=== PATIENT | male | born 1945 | race Caucasian/White ===

== ENCOUNTER 2018-06-06 19:28 | Inpatient (IN) | payer OTHER ==
--- NOTE | 2018-06-06 19:47 | PDOC ---
Rapid Medical Evaluation Medical Evaluation: Allergies Allergy/AdvReac Type Severity Reaction Status Date / Time No Known Drug Allergies Allergy Verified 12/01/14 11:23 I have performed a brief in-person evaluation of this patient. The patient presents with a chief complaint of: hx of Alzheimers, per daughter- in-law, patient feeling ill past 2 days; states just lying in bed, not eating or drinking much; denies vomiting, diarrhea, cough Pertinent physical exam findings: In NAD I have ordered the following: Labs, EKG The patient will proceed to the ED for further evaluation. 06/06/18 19:44
[2018-06-06 20:20] LABS: BASO % 1.2 % (0-2.0); EOS % 0.3 % (0-4.5); HEMOGLOBIN 15.7 GM/dL (11.7-16.9); LYMPH % 19.2 % (8-40); MCH 32.1 pg (25.7-33.7); MCHC 34.9 g/dl (32.0-35.9); MEAN CELL VOLUME 92.1 fl (80-96); MEAN PLT VOLUME 8.6 fl (7.5-11.1); NEUT % 74.3 % (42.8-82.8); PLATELET COUNT 168 K/MM3 (134-434); RBC 4.89 M/mm3 (4.00-5.60); RDW 12.4 % (11.9-15.9); WHITE BLOOD COUNT 9.2 K/mm3 (4.0-10.0)
[2018-06-06 20:53] LABS: ALBUMIN 3.9 g/dl (3.4-5.0); ALK PHOS 95 U/L (45-117); ANION GAP 6 MMOL/L (8-16); BILIRUBIN,TOTAL 0.6 mg/dL (0.2-1); BLOOD UREA NITROGEN 17 mg/dL (7-18); CALCIUM 8.4 mg/dL (8.5-10.1); CHLORIDE 104 mmol/L (98-107); CO2 26 mmol/L (21-32); CREATININE 0.8 mg/dL (0.55-1.3); GLUCOSE,RANDOM 117 mg/dL (74-106); POTASSIUM 4.4 mmol/L (3.5-5.1); SGOT/AST 14 U/L (15-37); SGPT/ALT 20 U/L (13-61); SODIUM 136 mmol/L (136-145); TOT PROT 7.5 g/dl (6.4-8.2)
[2018-06-06 21:07] LABS: EPI CELLS 0.9 /HPF (FEW); HYALINE CASTS 5 /hpf (NEGATIVE); URINE APPEARANCE CLEAR; URINE BACTERIA 0.324 /hpf (NEGATIVE); URINE BILIRUBIN NEGATIVE (<2.0 mg/dL); URINE COLOR YELLOW; URINE GLUCOSE (UA) NEGATIVE (NEGATIVE); URINE KETONE TRACE (NEGATIVE); URINE LEUK ESTERASE NEGATIVE (NEGATIVE); URINE NITRITE NEGATIVE (NEGATIVE); URINE PROTEIN NEGATIVE (NEGATIVE); URINE RBC 1 /hpf (0-3); URINE UROBILINOGEN 0.2 mg/dL (0.2-1.0); URINE WBC 1 /hpf (3-5)
--- NOTE | 2018-06-06 21:35 | PDOC ---
History of Present Illness - History of Present Illness Initial Comments: The pt is a 72M w/ a history of dementia who presents for evaluation of 2 days headache and vomiting. History from pt and daughter. He reports 2 days of waxing /waning, b/l, throbbing PLUNKETT. He also reports vomiting over the last two days but is unsure of number but denies remembering seeing blood in his vomit. 2 times today. Endorses chills. Denies vision changes, weakness, or change in sensation. Fell one month ago but denies any recent falls or head trauma. He has tried taking Tylenol and Ibuprofen with minimal relief. Denies fevers, abdominal pain, diarrhea, dysuria, hematuria 06/06/18 22:46 <Shay Ramirez - Last Filed: 06/07/18 01:25> <Ana Maria Pitts - Last Filed: 06/07/18 02:30> - General Chief Complaint: Weakness Stated Complaint: WEAKNESS Time Seen by Provider: 06/06/18 19:44 Past History - Past Medical History Anemia: No Asthma: No Cancer: No CVA: No COPD: No Diabetes: No HTN: No - Surgical History Abdominal Surgery: Yes (rt ing hernia) - Suicide/Smoking/Psychosocial Hx Smoking History: Never smoked Have you smoked in the past 12 months: No Information on smoking cessation initiated: No Hx Alcohol Use: No Drug/Substance Use Hx: No Substance Use Type: None Hx Substance Use Treatment: No <Shay Ramirez - Last Filed: 06/07/18 01:25> <Ana Maria Pitts - Last Filed: 06/07/18 02:30> - Past Medical History Allergies/Adverse Reactions: Allergies Allergy/AdvReac Type Severity Reaction Status Date / Time No Known Drug Allergies Allergy Verified 06/06/18 19:48 Home Medications: Ambulatory Orders Donepezil HCl 10 mg PO DAILY 06/06/18 Review of Systems - Review of Systems Able to Perform ROS?: Yes Comments:: GENERAL/CONSTITUTIONAL: No fever. No weakness HEAD, EYES, EARS, NOSE AND THROAT: No change in vision or hearing. No sore throat CARDIOVASCULAR: No chest pain or shortness of breath RESPIRATORY: Denies cough, hemoptysis GASTROINTESTINAL: No diarrhea or constipation GENITOURINARY: No dysuria, frequency, or change in urination MUSCULOSKELETAL: No joint or muscle swelling or pain. No neck or back pain SKIN: No rash NEUROLOGIC: No vertigo, loss of consciousness, or change in strength/sensation ENDOCRINE: No increased thirst. No abnormal weight change HEMATOLOGIC/LYMPHATIC: No anemia, easy bleeding, or history of blood clots ALLERGIC/IMMUNOLOGIC: No hives or skin allergy 06/06/18 22:52 <Shay Ramirez - Last Filed: 06/07/18 01:25> *Physical Exam - Vital Signs Last Vital Signs Temp Pulse Resp BP Pulse Ox 97.9 F 65 16 149/86 97 06/06/18 19:46 06/06/18 19:46 06/06/18 19:46 06/06/18 19:46 06/06/18 19:46 - Physical Exam Comments: GENERAL: Awake, alert, and oriented to person/place/time, in no acute distress HEAD: No signs of trauma, normocephalic, atraumatic EYES: PERRLA, EOMI, sclera anicteric, conjunctiva clear ENT: Hearing grossly normal, nares patent, oropharynx clear without exudates. Moist mucosa LUNGS: No distress, speaks full sentences, clear to auscultation bilaterally HEART: Regular rate and rhythm, normal S1 and S2, no murmurs appreciated, peripheral pulses normal and equal bilaterally ABDOMEN: Soft, mild RUQ TTP w/o rebound or guarding, normoactive bowel sounds. No guarding, no rebound. No masses EXTREMITIES: Normal inspection, Normal range of motion, no edema. No clubbing or cyanosis NEUROLOGICAL: Cranial nerves II through XII grossly intact. Normal speech, normal gait, no focal sensorimotor deficits SKIN: Warm, Dry 06/06/18 22:52 <Shay Ramirez - Last Filed: 06/07/18 01:25> - Vital Signs Last Vital Signs Temp Pulse Resp BP Pulse Ox 98.0 F 62 16 128/93 92 L 06/06/18 21:59 06/07/18 02:05 06/07/18 02:05 06/07/18 02:05 06/07/18 02:05 <Ana Maria Pitts - Last Filed: 06/07/18 02:30> Moderate Sedation - Procedure Monitoring Vital Signs: Procedure Monitoring Vital Signs Temperature 97.9 F 06/06/18 19:46 Pulse Rate 65 06/06/18 19:46 Respiratory Rate 16 06/06/18 19:46 Blood Pressure 149/86 06/06/18 19:46 O2 Sat by Pulse Oximetry (%) 97 06/06/18 19:46 <Shay Ramirez - Last Filed: 06/07/18 01:25> - Procedure Monitoring Vital Signs: Procedure Monitoring Vital Signs Temperature 98.0 F 06/06/18 21:59 Pulse Rate 62 06/07/18 02:05 Respiratory Rate 16 06/07/18 02:05 Blood Pressure 128/93 06/07/18 02:05 O2 Sat by Pulse Oximetry (%) 92 L 06/07/18 02:05 <Ana Maria Pitts - Last Filed: 06/07/18 02:30> ED Treatment Course - LABORATORY CBC & Chemistry Diagram: 06/06/18 20:08 06/06/18 20:08 - ADDITIONAL ORDERS Additional order review: Laboratory Results 06/06/18 06/06/18 20:48 20:08 Sodium 136 Potassium 4.4 Chloride 104 Carbon Dioxide 26 Anion Gap 6 L BUN 17 Creatinine 0.8 Creat Clearance w eGFR 94.50 Random Glucose 117 H Calcium 8.4 L Total Bilirubin 0.6 AST 14 L ALT 20 Alkaline Phosphatase 95 Troponin I < 0.02 Total Protein 7.5 Albumin 3.9 Urine Color Yellow Urine Appearance Clear Urine pH 5.0 Ur Specific Jackson 1.023 Urine Protein Negative Urine Glucose (UA) Negative Urine Ketones Trace H Urine Blood Trace Urine Nitrite Negative Urine Bilirubin Negative Urine Urobilinogen 0.2 Ur Leukocyte Esterase Negative Urine WBC (Auto) 1 Urine RBC (Auto) 1 Urine Casts (Auto) 5 U Epithel Cells (Auto) 0.9 Urine Bacteria (Auto) 0.324 06/06/18 20:08 RBC 4.89 MCV 92.1 MCHC 34.9 RDW 12.4 MPV 8.6 Neutrophils % 74.3 D Lymphocytes % 19.2 D Monocytes % 5.0 Eosinophils % 0.3 D Basophils % 1.2 <Shay Ramirez - Last Filed: 06/07/18 01:25> - LABORATORY CBC & Chemistry Diagram: 06/06/18 20:08 06/06/18 20:08 - ADDITIONAL ORDERS Additional order review: Laboratory Results 06/07/18 06/06/18 06/06/18 01:48 20:48 20:08 PT with INR 12.70 INR 1.08 PTT (Actin FS) 31.1 Sodium 136 Potassium 4.4 Chloride 104 Carbon Dioxide 26 Anion Gap 6 L BUN 17 Creatinine 0.8 Creat Clearance w eGFR 94.50 Random Glucose 117 H Calcium 8.4 L Total Bilirubin 0.6 AST 14 L ALT 20 Alkaline Phosphatase 95 Troponin I < 0.02 Total Protein 7.5 Albumin 3.9 Urine Color Yellow Urine Appearance Clear Urine pH 5.0 Ur Specific Jackson 1.023 Urine Protein Negative Urine Glucose (UA) Negative Urine Ketones Trace H Urine Blood Trace Urine Nitrite Negative Urine Bilirubin Negative Urine Urobilinogen 0.2 Ur Leukocyte Esterase Negative Urine WBC (Auto) 1 Urine RBC (Auto) 1 Urine Casts (Auto) 5 U Epithel Cells (Auto) 0.9 Urine Bacteria (Auto) 0.324 06/06/18 20:08 RBC 4.89 MCV 92.1 MCHC 34.9 RDW 12.4 MPV 8.6 Neutrophils % 74.3 D Lymphocytes % 19.2 D Monocytes % 5.0 Eosinophils % 0.3 D Basophils % 1.2 - Medications Given in the ED: ED Medications Discontinued Medications Generic Name Dose Route Start Last Admin Trade Name Freq PRN Reason Stop Dose Admin Diphenhydramine HCl 12.5 mg 06/06/18 23:26 06/06/18 23:40 Benadryl Injection - IVPUSH 06/06/18 23:27 12.5 mg ONCE ONE Administration Metoclopramide HCl 10 mg 06/06/18 23:26 06/06/18 23:40 Reglan Injection - IVPUSH 06/06/18 23:27 10 mg ONCE ONE Administration Sodium Chloride 1,000 ml 06/06/18 23:26 06/06/18 23:40 Normal Saline - IV 06/06/18 23:27 1,000 ml ONCE ONE Administration <Ana Maria Pitts - Last Filed: 06/07/18 02:30> Medical Decision Making - Medical Decision Making Trop I neg Lytes wnl No SAUL LFTs wnl UA w/o evidence of UTI Influenza neg 06/06/18 23:07 06/06/18 23:07 <Shay Ramirez - Last Filed: 06/07/18 01:25> *DC/Admit/Observation/Transfer <KaceyShay morelos - Last Filed: 06/07/18 01:25> - Discharge Dispostion Decision to Admit order: Yes <Ana Maria Pitts - Last Filed: 06/07/18 02:30> Diagnosis at time of Disposition: Subdural hematoma Vomiting Qualifiers: Vomiting type: unspecified Vomiting Intractability: non-intractable Nausea presence: with nausea Qualified Code(s): R11.2 - Nausea with vomiting, unspecified Headache Qualifiers: Headache type: unspecified Headache chronicity pattern: unspecified pattern Intractability: not intractable Qualified Code(s): R51 - Headache - Discharge Dispostion Condition at time of disposition: Critical - Referrals Referrals: Jessica Burnett MD [Primary Care Provider] - - Patient Instructions - Post Discharge Activity
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
[2018-06-06] MEDS ORDERED: METOCLOPRAMIDE HCL INJECTION 10 MG/2 ML VIAL IVPUSH ONE (23:26)
[2018-06-06] MEDS ORDERED: SODIUM CHLORIDE 0.9% 1000 ML INFUS.BAG IV ONE (23:26)
[2018-06-06] MEDS ORDERED: METOCLOPRAMIDE HCL INJECTION 10 MG/2 ML VIAL ONE (23:31)
[2018-06-07 02:19] LABS: INR 1.08 (0.83-1.09); PROTHROMBIN TIME (PATIENT) 12.7 SEC (9.7-13.0)
[2018-06-07 02:21] LABS: ACTIVATED PTT 31.1 SECONDS (25.2-36.5)
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
--- NOTE | 2018-06-07 03:43 | PN ---
Teaching Attending Note Name of Resident: Pranav Rivera ATTENDING PHYSICIAN STATEMENT I saw and evaluated the patient. I reviewed the resident's note and discussed the case with the resident. I agree with the resident's findings and plan as documented. SUBJECTIVE: Seen and examined; please refer to resident note for further historical information. Briefly, this is a 72 y/o preenting to the medicine service with b /l SDH. He presented complaining of a headache for 2 days and had several episodes of nbnb vomiting today. His sx were not relieved by OTC analgesics so he came to the ER for further eval. He is lucid, able to speak, and doesn't appear sleepy. No meningeal signs. Has had poor PO intake for the past [address] done in the ER shows b/l SDH with 1.7 maximum thickness on L and 1.5 maximum thickness on the R. Nsgy was called by ER and will see patient. He will be brought to the ICU for further treatment and monitoring. 10 sys ROS done and negative aside from HPI PMH, PSH, Family hx, Social hx reviewed Medication list reviewed; pending reconciliation OBJECTIVE: VS, labs, imaging reviewed NAD, AAO, resting comfortably in bed Questionable L-eye droop that corrects with wakefulness, NIHSS 0, 5/5 strength all extremities RRR s1/2 no mgr Lungs CTAB, w/ sym exp Skin is normal with no bruises, abbrasions Normal mood, appropriate behavior Labs unremarkable EKG reviewed Prelim CT report discussed ASSESSMENT AND PLAN: Patient is a 72 y/o male presenting with b/l subdural hematomas 1) Bilateral Subdural Hematoma -R (1.5) and L (1.7); nsgy to see. Defer further treatment and monitoring to their service. -Admit to ICU; hourly neuro checks with seizure precautions. HOB elevated. NPO and IVF without dextrose -Hold all AC; SCDs for DVT px, fall precautions. Any change in mentation will be communicated to specialist. 2) Dementia -Family unfortunately left prior to code status discussion, etc. 3) Headache -Likely 2/2 #1; PRN management. Avoid NSAIDs. 4) Hx L-LE DVT -Documented in 2014 notes. Call his pharmacy in the AM to verify home meds. PARRIS -MAHAD@75 -PRN replete -NPO -Bedrest
[2018-06-07] MEDS ORDERED: SODIUM CHLORIDE 1,000 ML IV SCH (04:00)
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
[2018-06-07] MEDS ORDERED: ACETAMINOPHEN 650 MG SUPP.RECT PR PRN (04:24)
[2018-06-07] MEDS: SODIUM CHLORIDE 1,000 ML IV SCH (04:30)
[2018-06-07] MEDS ORDERED: levETIRAcetam 500 MG/5 ML INJECTION VIAL IVPB ONE (04:34)
[2018-06-07] MEDS ORDERED: PT OWN MED DRAWER 7, Y5N ONE (07:05)
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
--- NOTE | 2018-06-07 07:50 | PN ---
Physical Exam: SUBJECTIVE: Patient seen and examined at bedside. No acute events overnight. Zoxmdojj-[id number] present at bedside. Pt is resting comfortably in bed, still has 6/10 headache. Denies f/c, sob, abd pain. OBJECTIVE: Vital Signs Period Temp Pulse Resp BP Sys/Amanda Pulse Ox Last 24 Hr 97.9 F-98.6 F 56-65 13-19 128-149/84-94 92-97 GENERAL: Filipino-speaking male. Awake and alert. NAD. Resting comfortably in bed. HEENT: AT/NC. EOMI. [place]. NECK: Trachea midline, full range of motion, supple. Good ROM. LUNGS: CTA B/L. No wheezes, rhonchi, rales heard. HEART: RRR. Normal S1, S2. No murmurs noted. ABDOMEN: SOft, NT/ND. Normactive bowel sounds. No masses noted. EXTREMITIES: 2+ pulses, warm, well-perfused, no edema. NEUROLOGICAL: Facial muscles intact. No tongue deviation. B/l facial sensation intact. Hamcmw-nz-aeky normal. PSYCH: Normal mood, normal affect. SKIN: LLE venous stasis dermatitis CBCD WBC 9.2 K/mm3 (4.0-10.0) 06/06/18 20:08 RBC 4.89 M/mm3 (4.00-5.60) 06/06/18 20:08 Hgb 15.7 GM/dL (11.7-16.9) 06/06/18 20:08 Hct 45.0 % (35.4-49) 06/06/18 20:08 MCV 92.1 fl (80-96) 06/06/18 20:08 MCHC 34.9 g/dl (32.0-35.9) 06/06/18 20:08 RDW 12.4 % (11.9-15.9) 06/06/18 20:08 Plt Count 168 K/MM3 (134-434) 06/06/18 20:08 MPV 8.6 fl (7.5-11.1) 06/06/18 20:08 CMP Sodium 136 mmol/L (136-145) 06/06/18 20:08 Potassium 4.4 mmol/L (3.5-5.1) 06/06/18 20:08 Chloride 104 mmol/L (98-107) 06/06/18 20:08 Carbon Dioxide 26 mmol/L (21-32) 06/06/18 20:08 Anion Gap 6 MMOL/L (8-16) L 06/06/18 20:08 BUN 17 mg/dL (7-18) 06/06/18 20:08 Creatinine 0.8 mg/dL (0.55-1.3) 06/06/18 20:08 Creat Clearance w eGFR 94.50 (>60) 06/06/18 20:08 Calcium 8.4 mg/dL (8.5-10.1) L 06/06/18 20:08 Total Bilirubin 0.6 mg/dL (0.2-1) 06/06/18 20:08 AST 14 U/L (15-37) L 06/06/18 20:08 ALT 20 U/L (13-61) 06/06/18 20:08 Alkaline Phosphatase 95 U/L (45-117) 06/06/18 20:08 Total Protein 7.5 g/dl (6.4-8.2) 06/06/18 20:08 Albumin 3.9 g/dl (3.4-5.0) 06/06/18 20:08 Active Medications Acetaminophen (Tylenol Suppository -) 650 mg IL Q4H PRN PRN Reason: FEVER Chlorhexidine Gluconate (Hibiclens For Decolonization -) 1 applic TP HS RAMBO Donepezil HCl (Aricept -) 10 mg PO HS RAMBO Sodium Chloride (Normal Saline -) 1,000 mls @ 75 mls/hr IV ASDIR RAMBO Last Admin: 06/07/18 04:30 Dose: 75 mls/hr Mupirocin (Bactroban Ointment (For Decolonization) -) 1 applic NS BID RAMBO Stop: 06/12/18 09:59 CONSULTS: Neurosurg- Dr. Oscar Kumar IMAGING: * Head CT: B/l isodense subacute subdural hematomas along the cerebral convexities w/ effacement of cortical sulci, sylvian fissures. Compressed lateral ventricles, third ventricle. Midline septum pellucidum. No evid of herniation. No CT evid of acute territorial ischemic changes. No evid of skull fracture. Past imaging: * Brain MRI (11/04/18): Unremarkable MRI fo brain. No evid of edema, acute ischemia changes, hemorrhage. Normal CSF spaces. No evid of supratentorial white matter microangiopathic ischemic changes, gliosis. No evid of dilatation of the temporal horns of lateral ventircles, loss of volume of medial temporal loss hippocampus. ASSESSMENT/PLAN: 72M w/ pmhx of dementia and hx of LLE DVT who presented with severe headache since this past Monday. Neuro #Bilateral subdural hematoma -Head CT noted above; remarkable for b/l subdural hematomas. Pt also has had a hx of mechanical fall about 1 month ago after which a head CT was done at [facility] and was neg per the [id number]. -Per neurosurg, recommend drainage of large b/l SDH given significant mass effect on head CT and severe new onset PLUNKETT -NPO, SCDs, Neurochecks, fall precautions -T&S ordered, 2 pRBCs ordered for procedure #Dementia Cont home med: Donepezil 10 HS Heme #Hx of DVT -bilateral LE duplex ordered Prophylaxis -SCDs FEN -NS @ 75 -replete lytes PRN -NPO, except meds dispo -cont to monitor in ICU -full code Visit type - Emergency Visit Emergency Visit: Yes ED Registration Date: 06/07/18 Care time: The patient presented to the Emergency Department on the above date and was hospitalized for further evaluation of their emergent condition. - New Patient This patient is new to me today: Yes Date on this admission: 06/07/18 - Critical Care Critical Care patient: Yes Total Critical Care Time (in minutes): 40 Critical Care Statement: The care of this patient involved high complexity decision making to prevent further life threatening deterioration of the patient 's condition and/or to evaluate & treat vital organ system(s) failure or risk of failure.
[2018-06-07 09:47] LABS: HEMATOCRIT 42.2 % (35.4-49); HEMOGLOBIN 14.8 GM/dL (11.7-16.9); MCH 32.3 pg (25.7-33.7); MEAN CELL VOLUME 92.2 fl (80-96); MEAN PLT VOLUME 8.7 fl (7.5-11.1); PLATELET COUNT 163 K/MM3 (134-434); RBC 4.58 M/mm3 (4.00-5.60); RDW 12.4 % (11.9-15.9); WHITE BLOOD COUNT 7.8 K/mm3 (4.0-10.0)
[2018-06-07] MEDS: MUPIROCIN 2% TOPICAL OINTMENT FOR DECOLONIZATION NS SCH ×2 (09:52→21:41)
[2018-06-07 09:58] LABS: INR 1.08 (0.83-1.09); PROTHROMBIN TIME (PATIENT) 12.7 SEC (9.7-13.0)
[2018-06-07 10:54] LABS: ERYTHROCYTE SEDIMENTATION RATE 7 mm/hr (0-20)
[2018-06-07] MEDS ORDERED: BACITRACIN 15 GM TUBE TOPICAL OINTMENT ONE (11:37)
[2018-06-07] MEDS ORDERED: THROMBIN (BOVINE) 5,000 UNIT VIAL TP ONE (11:38)
--- NOTE | 2018-06-07 12:03 | EKG ---
Test Reason : Blood Pressure : / mmHG Vent. Rate : 060 BPM Atrial Rate : 060 BPM P-R Int : 192 ms QRS Dur : 094 ms QT Int : 420 ms P-R-T Axes : 042 043 029 degrees QTc Int : 420 ms NORMAL SINUS RHYTHM NORMAL ECG WHEN COMPARED WITH ECG OF 03-AUG-2014 08:54, NO SIGNIFICANT CHANGE WAS FOUND Confirmed by HASEEB MARTINEZ MD ([id number]) on 06/07/2018 12:03:08 PM Referred By: Confirmed By:HASEEB MARTINEZ MD
[2018-06-07 12:29] LABS: ALBUMIN 3.6 g/dl (3.4-5.0); CO2 24 mmol/L (21-32)
[2018-06-07] MEDS ORDERED: LIDOCAINE HCL/PF 2% SDV 5ML VIAL ONE (12:30)
[2018-06-07] MEDS ORDERED: PROPOFOL 20 ML ONE ×2 (12:32)
[2018-06-07] MEDS ORDERED: fentaNYL CITRATE 250 MCG/5 ML VIAL ONE (12:32)
[2018-06-07] MEDS ORDERED: ROCURONIUM BROMIDE 50 MG/5 ML VIAL ONE ×2 (12:32→13:42)
[2018-06-07] MEDS ORDERED: ceFAZolin SODIUM 1 GM VIAL IVPB ONE (12:46)
[2018-06-07] MEDS ORDERED: BENZOIN TINCTURE SWABSTICK TP ONE (12:48)
--- NOTE | 2018-06-07 12:58 | PN ---
Teaching Attending Note Name of Resident: Sylvia Izquierdo ATTENDING PHYSICIAN STATEMENT I saw and evaluated the patient. I reviewed the resident's note and discussed the case with the resident. I agree with the resident's findings and plan as documented. SUBJECTIVE: Pt seen and examined in the ICU. c/o headache without nausea. Some visual changes. No focal numbness or weakness. MRI confirming large bilateral subdural hematomas. OBJECTIVE: Vital Signs Period Temp Pulse Resp BP Sys/Amanda Pulse Ox Last 24 Hr 97.9 F-98.6 F 56-72 13- 128-155/84-94 92-97 Intake & Output 06/04/18 06/05/18 06/06/18 06/07/18 23:59 23:59 23:59 23:59 Intake Total 150 Balance 150 Weight 90.718 kg 87.997 kg Gen: NAD at rest Heart: RRR Lung: decreased breath sounds at the bases Abd: soft, nontender Ext: no edema CBC, BMP 06/07/18 08:42 06/07/18 08:42 Active Medications Acetaminophen (Tylenol Suppository -) 650 mg HI Q4H PRN PRN Reason: FEVER Chlorhexidine Gluconate (Hibiclens For Decolonization -) 1 applic TP HS RAMBO Donepezil HCl (Aricept -) 10 mg PO HS RAMBO Sodium Chloride (Normal Saline -) 1,000 mls @ 75 mls/hr IV ASDIR RAMBO Last Admin: 06/07/18 04:30 Dose: 75 mls/hr Mupirocin (Bactroban Ointment (For Decolonization) -) 1 applic NS BID RAMBO Stop: 06/12/18 09:59 Last Admin: 06/07/18 09:52 Dose: 1 applic ASSESSMENT AND PLAN: s/p Fall Bilateral Subacute Hematomas with mass effect h/o DVT Dementia - neurosurgery f/u - for OR - NPO - IVF - pain control - neuro checks - mechanical DVT prophylaxis - continue ICU monitoring
[2018-06-07] MEDS ORDERED: LIDOCAINE 1%/EPI 1:100000 (20 ML MULTI DOSE VIAL) IJ ONE ×2 (13:03)
[2018-06-07 13:17] LABS: ALK PHOS 80 U/L (45-117); ANION GAP 7 MMOL/L (8-16); BILIRUBIN,TOTAL 0.9 mg/dL (0.2-1); BLOOD UREA NITROGEN 14 mg/dL (7-18); CALCIUM 8.3 mg/dL (8.5-10.1); CHLORIDE 108 mmol/L (98-107); CREATININE 0.7 mg/dL (0.55-1.3); GLUCOSE,RANDOM 105 mg/dL (74-106); MAGNESIUM 2.4 mg/dL (1.8-2.4); POTASSIUM 3.8 mmol/L (3.5-5.1); SGOT/AST 11 U/L (15-37); SGPT/ALT 19 U/L (13-61); SODIUM 139 mmol/L (136-145); TOT PROT 6.8 g/dl (6.4-8.2)
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
[2018-06-07] MEDS ORDERED: ePHEDrine SULFATE 50 MG/1 ML AMPULE ONE ×2 (13:41)
[2018-06-07] MEDS ORDERED: BACITRACIN 50,000 UNITS VIAL TP ONE (13:42)
[2018-06-07] MEDS ORDERED: NEOSTIGMINE METHYLSULFATE 0.5 MG/1 ML - 10 ML MDV ONE (14:35)
[2018-06-07] MEDS ORDERED: GLYCOPYRROLATE 0.2 MG/1 ML VIAL ONE ×2 (14:35)
[2018-06-07] MEDS ORDERED: ALBUMIN HUMAN 25% 100 ML VIAL IVPB SCH (14:45)
--- NOTE | 2018-06-07 14:48 | OP ---
Operative Note - Note: Operative Date: 06/07/18 Pre-Operative Diagnosis: Bilateral large SDH with mass effect Operation: R frontal craniotomy for evacuation of SDH; L frontal craniotomy for evacuation of SDH, microsurgical dissection, B subdural drain placement Findings: subacute B SDH; beginning R sided membrane Implants: cranial plates x8 and 1.5x5 mm screws x 16 Post-Operative Diagnosis: Same as Pre-op Surgeon: Oscar Kumar Head Rigger: Aj Villagomez Anesthesiologist/RUFFLING HEMMER AUTOMATIC: Cornell Cruz Anesthesia: General Specimens Removed: SDH for cytology, gram stain, culture Estimated Blood Loss (mls): 100 Operative Report Dictated: Yes
[2018-06-07 15:03] LABS: ANISOCYTOSIS 0; HELMET CELLS 0; HOWELL-JOLLY BODIES 0; MACROCYTOSIS 0; OVALOCYTE 0; PLATELET ESTIMATE DECREASED; ROULEAU 0; SICKELED CELLS 0; TARGET CELLS 0; TEAR DROP CELLS 0; TOXIC GRANULATION 0
--- NOTE | 2018-06-07 15:06 | PN ---
Progress Note (short form) - Note Progress Note: NEUROSURGERY POST-OP Back in ICU Still sleepy no complaint PE: AF, VSS HEENT- NC/AT; Neck- supple; Cor- RRR; Lungs- CTA B; Abd- beinign; Ext- no sign of DVT French speaking CN- PERRL, EOMF, face symmetric, tongue midlime; Motor- at least 4+/5 B UE/LE without drift; Sensation- intact; DTR- 1+; toes upgoing B Acute on chronic L > R lateral fronto-parietal convexity SDH with mass effect and signs of increased intracranial pressure s/p B craniotomy and drain placement Labs Kera Head CT in AM Drain instructions and HOB position d/w ICU team Findings and pt condition d/w family All questions answered
[2018-06-07] MEDS ORDERED: ONDANSETRON 4 MG/2 ML VIAL IVPUSH PRN (15:12)
[2018-06-07] MEDS ORDERED: PROMETHAZINE HCL 25 MG/1 ML VIAL IVPUSH PRN (15:12)
[2018-06-07] MEDS ORDERED: oxyCODONE HCL 5 MG TABLET PO PRN (15:12)
--- NOTE | 2018-06-07 15:16 | OP ---
Operative Note - Note: Operative Date: 06/07/18 Pre-Operative Diagnosis: Bilateral large SDH with mass effect Operation: Rt frontal craniotomy for evacuation of SDH; Lt frontal craniotomy for evacuation of SDH, microsurgical dissection, Bilateral subdural drain placement Post-Operative Diagnosis: Same as Pre-op Surgeon: Oscar Kumar [employer] Director: Aj Villagomez Anesthesiologist/RECORDING ARTIST: Cornell Cruz Anesthesia: General Estimated Blood Loss (mls): 100 Operative Report Dictated: Yes
[2018-06-07] MEDS: ALBUMIN HUMAN 25% 100 ML VIAL IVPB SCH ×2 (16:19→21:22)
[2018-06-07] MEDS: D5-NS + 20 MEQ KCL - 20 MEQ/1,000 ML INFUS.BAG IV SCH (16:20)
[2018-06-07] MEDS ORDERED: ALBUMIN HUMAN 25% 100 ML VIAL IVPB ONE (16:27)
[2018-06-07] MEDS: CEFAZOLIN 1 GM/D5W 1 GM/50 ML BAG IVPB SCH (18:46)
[2018-06-07] MEDS: LYTES/YERBA SANTA 240 ML BOTTLE MM SCH (18:47)
--- NOTE | 2018-06-07 19:03 | PN ---
Teaching Attending Note Name of Resident: Cheyenne Encinas ATTENDING PHYSICIAN STATEMENT I saw and evaluated the patient. I reviewed the resident's note and discussed the case with the resident. I agree with the resident's findings and plan as documented. SUBJECTIVE: patient complains of headache. No cp, sob, n/v OBJECTIVE: Gen: nad Pulm: ctab w/o w/r/r CV: rrr w/o m/r/g Abd: +bs, s/nt/nd Ext: no c/c/e ASSESSMENT AND PLAN: -case d/w Dr Kumar -planning for surgical intervention today Problem List - Problems (1) Subdural hematoma Code(s): S06.5X9A - TRAUM SUBDR HEM W LOC OF UNSP DURATION, INIT
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
--- NOTE | 2018-06-07 21:12 | CONSULT ---
Consult - text type - Consultation Consultation Note: The pt is a 72M w/ a history of dementia who presents for evaluation of 2 days headache and vomiting. He reports 2 days of waxing/waning, b/l, throbbing headache. Endorses chills. Denies vision changes, weakness, or change in sensation. Fell one month ago but denies any recent falls or head trauma. Denies fevers, abdominal pain, diarrhea, dysuria, hematuria - Past Medical History dementia - Surgical History Abdominal Surgery: Yes (rt ing hernia) - Suicide/Smoking/Psychosocial Hx Smoking History: Never smoked Allergies/Adverse Reactions: Allergies Allergy/AdvReac Type Severity Reaction Status Date / Time No Known Drug Allergies Allergy Verified 06/06/18 19:48 Home Medications: Ambulatory Orders Donepezil HCl 10 mg PO DAILY 06/06/18 - Vital Signs Last Vital Signs Temp Pulse Resp BP Pulse Ox 98.9 F 64 13 140/80 94 L 06/07/18 20:00 06/07/18 20:00 06/07/18 19:00 06/07/18 20:00 06/07/18 16:05 awake Cor: RSR, No murmurs, No gallops Lungs: Clear to P&A Abd: Soft, Normal bowel sounds, No organomegaly Ext:No significant edema Labs/meds reviewed a/p 72 y/o patient with dementia, fall 1 month ago, evaluated at [facility] now with b/l subdural hematomas, s/p neurosurgical drainage . nl cbc/pt/ptt remote h/o dvt and was on eliquis in 2013 but not on eliquis gor last several yrs. not on asa h/o varicose veins discussed with son
[2018-06-07] MEDS: levETIRAcetam 500 MG/5 ML INJECTION VIAL IVPB SCH (21:38)
[2018-06-07] MEDS: CHLORHEXIDINE GLUCONATE 4% CLEANSER FOR DECOLONIZATION TP SCH (21:39)
--- NOTE | 2018-06-07 21:41 | PN ---
Physical Exam: SUBJECTIVE: Patient seen and examined; + dementia; family at bedside; says at baseline; no complaints OBJECTIVE: Vital Signs Period Temp Pulse Resp BP Sys/Amanda Pulse Ox Last 24 Hr 98.0 F-100.7 F 56-82 10-19 126-155/60-94 92-95 GENERAL: The patient is awake, alert, demented NECK: Trachea midline, full range of motion, supple. LUNGS: Breath sounds equal, clear to auscultation bilaterally, no wheezes, no crackles, no accessory muscle use. Breast: no masses/lumps; nipple discharge HEART: Regular rate and rhythm, S1, S2 without murmur, rub or gallop. ABDOMEN: Soft, nontender, nondistended, normoactive bowel sounds, no guarding, no rebound, no hepatosplenomegaly, no masses. EXTREMITIES: 2+ pulses, warm, well-perfused, no edema. NEUROLOGICAL: Cranial nerves II through XII grossly intact. no focal deficits; strength 5/5; sensation intact; no droop PSYCH: Normal mood, normal affect. SKIN: Warm, dry, normal turgor, no rashes or lesions noted Laboratory Results - last 24 hr 06/06/18 06/07/18 06/07/18 21:55 01:48 01:48 WBC RBC Hgb Hct MCV MCH MCHC RDW Plt Count MPV Neutrophils % (Manual) Band Neutrophils % Lymphocytes % (Manual) Monocytes % (Manual) Eosinophils % (Manual) Basophils % (Manual) Myelocytes % (Man) Promyelocytes % (Man) Blast Cells % (Manual) Nucleated RBC % Metamyelocytes Hypochromia Toxic Granulation Dohle Bodies Platelet Estimate Polychromasia Poikilocytosis Basophilic Stippling Anisocytosis Microcytosis Macrocytosis Spherocytes Sickle Cells Target Cells Tear Drop Cells Ovalocytes Stomatocytes Helmet Cells [place] Bodies [place] Rings Kristen Cells Acanthocytes (Spur) Rouleaux Fragmented RBCs Schistocytes ESR PT with INR 12.70 INR 1.08 PTT (Actin FS) 31.1 Sodium Potassium Chloride Carbon Dioxide Anion Gap BUN Creatinine Creat Clearance w eGFR Random Glucose Calcium Phosphorus Magnesium Total Bilirubin AST ALT Alkaline Phosphatase Creatine Kinase Troponin I C-Reactive Protein B-Natriuretic Peptide Total Protein Albumin Vitamin B12 TSH Influenza A (Rapid) Negative Influenza B (Rapid) Negative Blood Type O POSITIVE Antibody Screen Negative Crossmatch See Detail 06/07/18 06/07/18 06/07/18 08:42 08:42 08:42 WBC 7.8 RBC 4.58 Hgb 14.8 Hct 42.2 MCV 92.2 MCH 32.3 MCHC 35.0 RDW 12.4 Plt Count 163 MPV 8.7 Neutrophils % (Manual) 60.6 Band Neutrophils % 0.0 Lymphocytes % (Manual) 30.3 Monocytes % (Manual) 3 L Eosinophils % (Manual) 1.0 Basophils % (Manual) 1.0 Myelocytes % (Man) 0 Promyelocytes % (Man) 0 Blast Cells % (Manual) 0 Nucleated RBC % 1 H Metamyelocytes 0 Hypochromia 0 Toxic Granulation 0 Dohle Bodies 0 Platelet Estimate Decreased Polychromasia 0 Poikilocytosis 0 Basophilic Stippling 0 Anisocytosis 0 Microcytosis 0 Macrocytosis 0 Spherocytes 0 Sickle Cells 0 Target Cells 0 Tear Drop Cells 0 Ovalocytes 0 Stomatocytes 0 Helmet Cells 0 [place] Bodies 0 [place] Rings 0 [place] Cells 0 Acanthocytes (Spur) 0 Rouleaux 0 Fragmented RBCs 0 Schistocytes 0 ESR 7 PT with INR 12.70 INR 1.08 PTT (Actin FS) Sodium 139 Potassium 3.8 Chloride 108 H Carbon Dioxide 24 Anion Gap 7 L BUN 14 Creatinine 0.7 Creat Clearance w eGFR 110.24 Random Glucose 105 Calcium 8.3 L Phosphorus 3.0 Magnesium 2.4 Total Bilirubin 0.9 AST 11 L ALT 19 Alkaline Phosphatase 80 Creatine Kinase 62 Troponin I < 0.02 C-Reactive Protein < 0.3 B-Natriuretic Peptide Total Protein 6.8 Albumin 3.6 Vitamin B12 1981 H TSH 1.57 Influenza A (Rapid) Influenza B (Rapid) Blood Type Antibody Screen Crossmatch 06/07/18 06/07/18 06/07/18 08:42 08:42 09:25 WBC RBC Hgb Hct MCV MCH MCHC RDW Plt Count MPV Neutrophils % (Manual) Band Neutrophils % Lymphocytes % (Manual) Monocytes % (Manual) Eosinophils % (Manual) Basophils % (Manual) Myelocytes % (Man) Promyelocytes % (Man) Blast Cells % (Manual) Nucleated RBC % Metamyelocytes Hypochromia Toxic Granulation Dohle Bodies Platelet Estimate Polychromasia Poikilocytosis Basophilic Stippling Anisocytosis Microcytosis Macrocytosis Spherocytes Sickle Cells Target Cells Tear Drop Cells Ovalocytes Stomatocytes Helmet Cells [place] Bodies [place] Rings [place] Cells Acanthocytes (Spur) Rouleaux Fragmented RBCs Schistocytes ESR PT with INR INR PTT (Actin FS) 32.6 Sodium Potassium Chloride Carbon Dioxide Anion Gap BUN Creatinine Creat Clearance w eGFR Random Glucose Calcium Phosphorus Magnesium Total Bilirubin AST ALT Alkaline Phosphatase Creatine Kinase Troponin I C-Reactive Protein B-Natriuretic Peptide 128.8 H Total Protein Albumin Vitamin B12 TSH Influenza A (Rapid) Influenza B (Rapid) Blood Type O POSITIVE Antibody Screen Crossmatch Active Medications Generic Name Dose Route Start Last Admin Trade Name Freq PRN Reason Stop Dose Admin Acetaminophen 650 mg 06/07/18 04:24 Tylenol Suppository - CT Q4H PRN FEVER Acetaminophen/Codeine Phosphate 1 tab 06/07/18 14:36 Tylenol # 3 - PO Q4H PRN PAIN LEVEL 4 - 6 Albumin Human 25 gm 06/07/18 16:15 06/07/18 21:22 Albumin Human 25% - IVPB 25 gm Q6H-IV RAMBO Administration Chlorhexidine Gluconate 1 applic 06/07/18 22:00 Hibiclens For Decolonization - TP HS RAMBO Docusate Sodium 100 mg 06/07/18 22:00 Colace - PO TID RAMBO Donepezil HCl 10 mg 06/07/18 22:00 Aricept - PO HS RAMBO Fentanyl 50 mcg 06/07/18 15:12 Sublimaze Injection - IVPUSH 06/08/18 03:00 Q5M PRN PAIN-PACU ORDER X 4 DOSES ONLY Sodium Chloride 1,000 mls @ 75 mls/hr 06/07/18 04:30 06/07/18 04:30 Normal Saline - IV 75 mls/hr ASDIR RAMBO Administration Cefazolin Sodium 1 gm in 50 mls @ 100 mls/hr 06/07/18 18:00 06/07/18 18:46 Ancef 1 Gm Premixed Ivpb - IVPB 06/08/18 17:59 100 mls/hr Q8H-IV RAMBO Administration Dextrose/Sodium Chloride 20 meq in 1,000 mls @ 80 mls/hr 06/07/18 14:45 06/07 16:20 Dextrose 5%-Normal Saline+20 Meq Kcl - IV 80 mls/hr ASDIR RAMBO Administration Levetiracetam 500 mg 06/07/18 22:00 Keppra Injection - IVPB BID RAMBO Mupirocin 1 applic 06/07/18 10:00 06/07/18 09:52 Bactroban Ointment (For Decolonization) - NS 06/12/18 09:59 1 applic BID RAMBO Administration Ondansetron HCl 4 mg 06/07/18 14:36 Zofran Injection IVPUSH Q6H PRN NAUSEA Ondansetron HCl 4 mg 06/07/18 15:12 Zofran Injection IVPUSH Q6H PRN NAUSEA AND/OR VOMITING Oxycodone HCl 10 mg 06/07/18 15:12 Roxicodone - PO 06/08/18 15:11 Q4H PRN PAIN LEVEL 6-10 Pantoprazole Sodium 40 mg 06/08/18 10:00 Protonix Iv IVPUSH DAILY RAMBO Promethazine HCl 12.5 mg 06/07/18 15:12 Phenergan Injection - IVPUSH Q6H PRN NAUSEA-FOR RESCUE AFTER 15 MIN Saliva Substitute 1 applic 06/07/18 18:30 06/07/18 18:47 Mouthkote Solution - MM 1 applic DAILY RAMBO Administration ASSESSMENT/PLAN: This is a 72 year old male with dementia; who presents with headache and found to have a large 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 - New Patient This patient is new to me today: Yes Date on this admission: 06/07/18 - Critical Care Critical Care patient: Yes Total Critical Care Time (in minutes): 40 Critical Care Statement: The care of this patient involved high complexity decision making to prevent further life threatening deterioration of the patient 's condition and/or to evaluate & treat vital organ system(s) failure or risk of failure.
[2018-06-07] MEDS: DONEPEZIL HCL 10 MG TABLET (FP) PO SCH (22:21)
[2018-06-07] MEDS: DOCUSATE SODIUM 100 MG CAPSULE (FP) PO SCH (22:38)
[2018-06-08] MEDS: CEFAZOLIN 1 GM/D5W 1 GM/50 ML BAG IVPB SCH ×2 (02:09→10:20)
[2018-06-08] MEDS: ALBUMIN HUMAN 25% 100 ML VIAL IVPB SCH ×4 (03:00→22:55)
[2018-06-08] MEDS: SODIUM CHLORIDE 1,000 ML IV SCH (05:20)
[2018-06-08 06:23] LABS: HEMATOCRIT 35.3 % (35.4-49); HEMOGLOBIN 12.3 GM/dL (11.7-16.9); MCH 31.8 pg (25.7-33.7); MCHC 34.8 g/dl (32.0-35.9); MEAN CELL VOLUME 91.4 fl (80-96); MEAN PLT VOLUME 8.7 fl (7.5-11.1); PLATELET COUNT 140 K/MM3 (134-434); RBC 3.87 M/mm3 (4.00-5.60); RDW 12.5 % (11.9-15.9); WHITE BLOOD COUNT 9.7 K/mm3 (4.0-10.0)
[2018-06-08] MEDS: DOCUSATE SODIUM 100 MG CAPSULE (FP) PO SCH ×3 (06:23→21:56)
[2018-06-08] MEDS: D5-NS + 20 MEQ KCL - 20 MEQ/1,000 ML INFUS.BAG IV SCH ×3 (06:24→22:13)
[2018-06-08 07:13] LABS: ANION GAP 7 MMOL/L (8-16); BLOOD UREA NITROGEN 15 mg/dL (7-18); CALCIUM 8.1 mg/dL (8.5-10.1); CHLORIDE 107 mmol/L (98-107); CO2 26 mmol/L (21-32); CREATININE 0.7 mg/dL (0.55-1.3); GLUCOSE,RANDOM 112 mg/dL (74-106); MAGNESIUM 2.2 mg/dL (1.8-2.4); POTASSIUM 3.6 mmol/L (3.5-5.1); SODIUM 139 mmol/L (136-145)
--- NOTE | 2018-06-08 08:24 | PN ---
Progress Note (short form) - Note Progress Note: NEUROSURGERY POD #1 no new complaint H/A better, no N/V PE: Tmax 100.7, now 99.3, AF, VSS Drain yesterday L/R 45; today L/R HEENT- NC/AT; Neck- supple; Cor- RRR; Lungs- CTA B; Abd- benign; Ext- no sign of DVT Dominican speaking CN- PERRL, EOMF, face symmetric, tongue midline; Motor- at least 4+/5 B UE/LE without drift; Sensation- intact; DTR- 1+; toes upgoing B Labs reviewed Acute on chronic L > R lateral fronto-parietal convexity SDH s/p B craniotomy and drain placement Keppra Bedrest with HOB flat x at least 30 hours more while drain in place Complete albumin infusion for [address] today, if improved can start diet Drain instructions and HOB position d/w ICU team Will likely d/c drain tomorrow if decreasing output and CT improved Incentive spirometry Family at bedside All questions answered
--- NOTE | 2018-06-08 08:35 | PN ---
Physical Exam: SUBJECTIVE: Patient seen and examined. Son at bedside and translating. No acute events overnight. Pt only complains of dry mouth otherwise no other complaints. OBJECTIVE: Vital Signs Period Temp Pulse Resp BP Sys/Amanda Pulse Ox Last 24 Hr 98.4 F-100.7 F 55-82 10-19 113-154/60-92 94-98 GENERAL: Pashto-speaking male. Awake and alert. NAD. Resting comfortably in bed. HEENT: Head wrapped in surgical dressing. b/l bags in place draining red fluid. EOMI. GENOVEVA. NECK: Trachea midline, full range of motion, supple. Good ROM. LUNGS: CTA B/L. No wheezes, rhonchi, rales heard. HEART: RRR. Normal S1, S2. No murmurs noted. ABDOMEN: Soft, NT/ND. Normactive bowel sounds. No masses noted. EXTREMITIES: 2+ pulses, warm, well-perfused, no edema. NEUROLOGICAL: Facial muscles intact. No tongue deviation. B/l facial sensation intact. No focal neurological deficits. Follows commands. PSYCH: Normal mood, normal affect. SKIN: LLE venous stasis dermatitis CBCD WBC 9.7 K/mm3 (4.0-10.0) 06/08/18 05:30 RBC 3.87 M/mm3 (4.00-5.60) L 06/08/18 05:30 Hgb 12.3 GM/dL (11.7-16.9) 06/08/18 05:30 Hct 35.3 % (35.4-49) L D 06/08/18 05:30 MCV 91.4 fl (80-96) 06/08/18 05:30 MCHC 34.8 g/dl (32.0-35.9) 06/08/18 05:30 RDW 12.5 % (11.9-15.9) 06/08/18 05:30 Plt Count 140 K/MM3 (134-434) 06/08/18 05:30 MPV 8.7 fl (7.5-11.1) 06/08/18 05:30 CMP Sodium 139 mmol/L (136-145) 06/08/18 05:30 Potassium 3.6 mmol/L (3.5-5.1) 06/08/18 05:30 Chloride 107 mmol/L (98-107) 06/08/18 05:30 Carbon Dioxide 26 mmol/L (21-32) 06/08/18 05:30 Anion Gap 7 MMOL/L (8-16) L 06/08/18 05:30 BUN 15 mg/dL (7-18) 06/08/18 05:30 Creatinine 0.7 mg/dL (0.55-1.3) 06/08/18 05:30 Creat Clearance w eGFR 110.24 (>60) 06/08/18 05:30 Calcium 8.1 mg/dL (8.5-10.1) L 06/08/18 05:30 Total Bilirubin 0.9 mg/dL (0.2-1) 06/07/18 08:42 AST 11 U/L (15-37) L 06/07/18 08:42 ALT 19 U/L (13-61) 06/07/18 08:42 Alkaline Phosphatase 80 U/L (45-117) 06/07/18 08:42 Total Protein 6.8 g/dl (6.4-8.2) 06/07/18 08:42 Albumin 3.6 g/dl (3.4-5.0) 06/07/18 08:42 Active Medications Acetaminophen (Tylenol Suppository -) 650 mg [place] Q4H PRN PRN Reason: FEVER Acetaminophen/Codeine Phosphate (Tylenol # 3 -) 1 tab PO Q4H PRN PRN Reason: PAIN LEVEL 4 - 6 Albumin Human (Albumin Human 25% -) 25 gm IVPB Q6H-IV RAMBO Last Admin: 06/08/18 03:00 Dose: 25 gm Chlorhexidine Gluconate (Hibiclens For Decolonization -) 1 applic TP HS [facility] Last Admin: 06/07/18 21:39 Dose: 1 applic Docusate Sodium (Colace -) 100 mg PO TID RAMBO Last Admin: 06/08/18 06:23 Dose: Not Given Donepezil HCl (Aricept -) 10 mg PO HS [facility] Last Admin: 06/07/18 22:21 Dose: Not Given Sodium Chloride (Normal Saline -) 1,000 mls @ 75 mls/hr IV ASDIR RAMBO Last Admin: 06/08/18 05:20 Dose: Not Given Cefazolin Sodium (Ancef 1 Gm Premixed Ivpb -) 1 gm in 50 mls @ 100 mls/hr IVPB Q8H-IV RAMBO Stop: 06/08/18 17:59 Last Admin: 06/08/18 02:09 Dose: 100 mls/hr Dextrose/Sodium Chloride (Dextrose 5%-Normal Saline+20 Meq Kcl -) 20 meq in 1, 000 mls @ 80 mls/hr IV ASDIR [facility] Last Admin: 06/08/18 06:24 Dose: 80 mls/hr Levetiracetam (Keppra Injection -) 500 mg IVPB BID [facility] Last Admin: 06/07/18 21:38 Dose: 500 mg Mupirocin (Bactroban Ointment (For Decolonization) -) 1 applic NS BID [facility] Stop: 06/12/18 09:59 Last Admin: 06/07/18 21:41 Dose: 1 applic Ondansetron HCl (Zofran Injection) 4 mg IVPUSH Q6H PRN PRN Reason: NAUSEA Ondansetron HCl (Zofran Injection) 4 mg IVPUSH Q6H PRN PRN Reason: NAUSEA AND/OR VOMITING Oxycodone HCl (Roxicodone -) 10 mg PO Q4H PRN PRN Reason: PAIN LEVEL 6-10 Stop: 06/08/18 15:11 Pantoprazole Sodium (Protonix Iv) 40 mg IVPUSH DAILY [facility] Promethazine HCl (Phenergan Injection -) 12.5 mg IVPUSH Q6H PRN PRN Reason: NAUSEA-FOR RESCUE AFTER 15 MIN Saliva Substitute (Mouthkote Solution -) 1 applic MM DAILY [facility] Last Admin: 06/07/18 18:47 Dose: 1 applic CONSULTS: Neurosurg- Dr. Oscar Kumar Heme- Dr. Box IMAGING: * Head CT (06/07/18): B/l isodense subacute subdural hematomas along the cerebral convexities w/ effacement of cortical sulci, sylvian fissures. Compressed lateral ventricles, third ventricle. Midline septum pellucidum. No evid of herniation. No CT evid of acute territorial ischemic changes. No evid of skull fracture. * LE duplex: No DVT identified involving either leg. Chronic appearing thrombus noted within L greater saphenous vein at level of knee. * Head CT (06/08/18): S/p evacuation of subdural hematomas. S/p bifrontal craniotomy, hyperdense blood or surgical material along the inner table of the calvarium at postsurgical site. Small extra-axial fluid collection of CSF attenuation (hygromas) L > R. Pneumocephalus w/ air-fluid level along L frontal convexity. Midline septum pellucidum. Mildly increased dilatation of lateral ventricles, third ventricle. Effaced cortical sulci. Past imaging: * Brain MRI (11/04/18): Unremarkable MRI fo brain. No evid of edema, acute ischemia changes, hemorrhage. Normal CSF spaces. No evid of supratentorial white matter microangiopathic ischemic changes, gliosis. No evid of dilatation of the temporal horns of lateral ventircles, loss of volume of medial temporal loss hippocampus. ASSESSMENT/PLAN: 72M w/ pmhx of dementia and hx of LLE DVT who presented with severe headache since this past Monday. Neuro #Bilateral subdural hematoma; s/p craniectomy w/ b/l drainage, POD #1 -Keep flat x30 hours while drain in place -Repeat head CT showed only post-op changes, can advance diet -Per neurosurg, likely d/c drain tomorrow if output decreased -Complete albumin infusion -Keppra #Dementia Cont home med: Donepezil 10 HS Heme #Hx of DVT -bilateral LE duplex ordered Prophylaxis -SCDs FEN -NS @ 75 -replete lytes PRN -May advance diet per neurosurg dispo -cont to monitor in ICU -full code Visit type - Emergency Visit Emergency Visit: Yes ED Registration Date: 06/07/18 Care time: The patient presented to the Emergency Department on the above date and was hospitalized for further evaluation of their emergent condition. - New Patient This patient is new to me today: No - Critical Care Critical Care patient: Yes Total Critical Care Time (in minutes): 36 Critical Care Statement: The care of this patient involved high complexity decision making to prevent further life threatening deterioration of the patient 's condition and/or to evaluate & treat vital organ system(s) failure or risk of failure.
[2018-06-08] MEDS: PANTOPRAZOLE SODIUM 40 MG VIAL IVPUSH SCH (09:28)
[2018-06-08] MEDS: levETIRAcetam 500 MG/5 ML INJECTION VIAL IVPB SCH ×2 (09:28→22:11)
[2018-06-08] MEDS: MUPIROCIN 2% TOPICAL OINTMENT FOR DECOLONIZATION NS SCH ×2 (09:29→22:14)
[2018-06-08] MEDS: LYTES/YERBA SANTA 240 ML BOTTLE MM SCH (09:29)
--- NOTE | 2018-06-08 10:57 | EKG ---
Test Reason : Blood Pressure : / mmHG Vent. Rate : 057 BPM Atrial Rate : 057 BPM P-R Int : 192 ms QRS Dur : 102 ms QT Int : 420 ms P-R-T Axes : 073 070 071 degrees QTc Int : 408 ms SINUS BRADYCARDIA NON-SPECIFIC INTRA-VENTRICULAR CONDUCTION DELAY WHEN COMPARED WITH ECG OF 06-JUN-2018 20:13, NO SIGNIFICANT CHANGE WAS FOUND Confirmed by DIANNE BRAGA, SHELLY ([id number]) on 06/08/2018 10:56:51 AM Referred By: Confirmed By:SHELLY DEAN MD
--- NOTE | 2018-06-08 12:28 | PN ---
Teaching Attending Note Name of Resident: Sylvia Izquierdo ATTENDING PHYSICIAN STATEMENT I saw and evaluated the patient. I reviewed the resident's note and discussed the case with the resident. I agree with the resident's findings and plan as documented. SUBJECTIVE: Patient seen and examined in the ICU. Son at the bedside for translation. PLUNKETT is improving. Exam is essentially non-focal. Seen by Neurosurgery this AM. OBJECTIVE: Intake & Output 06/05/18 06/06/18 06/07/18 06/08/18 23:59 23:59 23:59 23:59 Intake Total 3265 860 Output Total 2785 1535 Balance 480 -675 Weight 200 lb 194 lb 204 lb 2.369 oz Last Vital Signs Temp Pulse Resp BP Pulse Ox 98.4 F 59 L 14 114/60 98 06/08/18 09:00 06/08/18 09:00 06/08/18 09:00 06/08/18 09:00 06/08/18 09:00 Active Medications Acetaminophen (Tylenol Suppository -) 650 mg [place] Q4H PRN PRN Reason: FEVER Acetaminophen/Codeine Phosphate (Tylenol # 3 -) 1 tab PO Q4H PRN PRN Reason: PAIN LEVEL 4 - 6 Albumin Human (Albumin Human 25% -) 25 gm IVPB Q6H-IV [facility] Last Admin: 06/08/18 09:20 Dose: 25 gm Chlorhexidine Gluconate (Hibiclens For Decolonization -) 1 applic TP HS [facility] Last Admin: 06/07/18 21:39 Dose: 1 applic Docusate Sodium (Colace -) 100 mg PO TID [facility] Last Admin: 06/08/18 06:23 Dose: Not Given Donepezil HCl (Aricept -) 10 mg PO HS [facility] Last Admin: 06/07/18 22:21 Dose: Not Given Sodium Chloride (Normal Saline -) 1,000 mls @ 75 mls/hr IV ASDIR [facility] Last Admin: 06/08/18 05:20 Dose: Not Given Cefazolin Sodium (Ancef 1 Gm Premixed Ivpb -) 1 gm in 50 mls @ 100 mls/hr IVPB Q8H-IV [facility] Stop: 06/08/18 17:59 Last Admin: 06/08/18 10:20 Dose: 100 mls/hr Dextrose/Sodium Chloride (Dextrose 5%-Normal Saline+20 Meq Kcl -) 20 meq in 1, 000 mls @ 80 mls/hr IV ASDIR [facility] Last Admin: 06/08/18 06:24 Dose: 80 mls/hr Levetiracetam (Keppra Injection -) 500 mg IVPB BID [facility] Last Admin: 06/08/18 09:28 Dose: 500 mg Mupirocin (Bactroban Ointment (For Decolonization) -) 1 applic NS BID [facility] Stop: 06/12/18 09:59 Last Admin: 06/08/18 09:29 Dose: 1 applic Ondansetron HCl (Zofran Injection) 4 mg IVPUSH Q6H PRN PRN Reason: NAUSEA Ondansetron HCl (Zofran Injection) 4 mg IVPUSH Q6H PRN PRN Reason: NAUSEA AND/OR VOMITING Oxycodone HCl (Roxicodone -) 10 mg PO Q4H PRN PRN Reason: PAIN LEVEL 6-10 Stop: 06/08/18 15:11 Pantoprazole Sodium (Protonix Iv) 40 mg IVPUSH DAILY [facility] Last Admin: 06/08/18 09:28 Dose: 40 mg Promethazine HCl (Phenergan Injection -) 12.5 mg IVPUSH Q6H PRN PRN Reason: NAUSEA-FOR RESCUE AFTER 15 MIN Saliva Substitute (Mouthkote Solution -) 1 applic MM DAILY [facility] Last Admin: 06/08/18 09:29 Dose: 1 applic Gen: Awake and alert, NAD at rest Heart: RRR Lung: decreased breath sounds at the bases Abd: soft, nontender Ext: no edema Laboratory Results - last 24 hr 06/07/18 06/07/18 06/07/18 08:42 08:42 08:42 WBC RBC Hgb Hct MCV MCH MCHC RDW Plt Count MPV Neutrophils % (Manual) 60.6 Band Neutrophils % 0.0 Lymphocytes % (Manual) 30.3 Monocytes % (Manual) 3 L Eosinophils % (Manual) 1.0 Basophils % (Manual) 1.0 Myelocytes % (Man) 0 Promyelocytes % (Man) 0 Blast Cells % (Manual) 0 Nucleated RBC % 1 H Metamyelocytes 0 Hypochromia 0 Toxic Granulation 0 Dohle Bodies 0 Platelet Estimate Decreased Polychromasia 0 Poikilocytosis 0 Basophilic Stippling 0 Anisocytosis 0 Microcytosis 0 Macrocytosis 0 Spherocytes 0 Sickle Cells 0 Target Cells 0 Tear Drop Cells 0 Ovalocytes 0 Stomatocytes 0 Helmet Cells 0 [place] Bodies 0 [place] Rings 0 [place] Cells 0 Acanthocytes (Spur) 0 Rouleaux 0 Fragmented RBCs 0 Schistocytes 0 PTT (Actin FS) 32.6 Sodium 139 Potassium 3.8 Chloride 108 H Carbon Dioxide 24 Anion Gap 7 L BUN 14 Creatinine 0.7 Creat Clearance w eGFR 110.24 Random Glucose 105 Calcium 8.3 L Phosphorus 3.0 Magnesium 2.4 Total Bilirubin 0.9 AST 11 L ALT 19 Alkaline Phosphatase 80 Creatine Kinase 62 Troponin I < 0.02 C-Reactive Protein < 0.3 Total Protein 6.8 Albumin 3.6 Vitamin B12 1981 H TSH 1.57 06/08/18 06/08/18 05:30 05:30 WBC 9.7 RBC 3.87 L Hgb 12.3 Hct 35.3 L D MCV 91.4 MCH 31.8 MCHC 34.8 RDW 12.5 Plt Count 140 MPV 8.7 Neutrophils % (Manual) Band Neutrophils % Lymphocytes % (Manual) Monocytes % (Manual) Eosinophils % (Manual) Basophils % (Manual) Myelocytes % (Man) Promyelocytes % (Man) Blast Cells % (Manual) Nucleated RBC % Metamyelocytes Hypochromia Toxic Granulation Dohle Bodies Platelet Estimate Polychromasia Poikilocytosis Basophilic Stippling Anisocytosis Microcytosis Macrocytosis Spherocytes Sickle Cells Target Cells Tear Drop Cells Ovalocytes Stomatocytes Helmet Cells [place] Bodies [place] Rings [place] Cells Acanthocytes (Spur) Rouleaux Fragmented RBCs Schistocytes PTT (Actin FS) Sodium 139 Potassium 3.6 Chloride 107 Carbon Dioxide 26 Anion Gap 7 L BUN 15 Creatinine 0.7 Creat Clearance w eGFR 110.24 Random Glucose 112 H Calcium 8.1 L Phosphorus 4.0 Magnesium 2.2 Total Bilirubin AST ALT Alkaline Phosphatase Creatine Kinase Troponin I C-Reactive Protein Total Protein Albumin Vitamin B12 TSH ASSESSMENT AND PLAN: s/p Fall Bilateral Subacute Hematomas with mass effect h/o DVT Dementia - Repeat CT head - PO if CT head is stable/improved - IVF - pain control - mechanical DVT prophylaxis - Flat on bed for 30 hours per NS - continue ICU monitoring for close neuro checks Dr Torre Critical care time spent in reviewing chart, evaluating patient and formulating plan - 36 minutes.
--- NOTE | 2018-06-08 16:14 | PN ---
Progress Note (short form) - Note Progress Note: Post op day#1.S/P Craniotomy with evacuation of haematoma under GA uneventful.P56,BP119/67 and Spo2 97% on O2 2L NC.Patient stable.No any anesthesia related problem.Patient DC from the anesthesia care.
--- NOTE | 2018-06-08 16:26 | PATH ---
Cytology Non-Gynecological Report Patient Name: SYED CRONIN Med. Rec. #: [id number] /Age/Gender: 1945 (Age: 72) / M Account: [id number] Location: ICU [facility] Taken: 06/07/2018 Received: 06/07/2018 Reported: 06/08/2018 Physicians: Oscar Kumar M.D. Specimen(s) Received RIGHT SUBDURAL HEMATOMA Clinical History Subdural hematoma Final Diagnosis SUBDURAL HEMATOMA FOR CYTOLOGY: SATISFACTORY FOR EVALUATION. NEGATIVE FOR MALIGNANT CELLS. NUMEROUS RED BLOOD CELLS PRESENT CONSISTENT WITH SUBDURAL HEMATOMA. RARE MINUTE BONE FRAGMENTS NOTED. Electronically Signed Sully Price M.D. Gross Description Approximately 2cc of bloody fluid received fresh. One cytofunnel prepared and Pap stained. One cellblock prepared.
--- NOTE | 2018-06-08 18:16 | PN ---
Physical Exam: SUBJECTIVE: Patient seen and examined; neuro exam same as prior to sx; POD #1 ; OBJECTIVE: Vital Signs Period Temp Pulse Resp BP Sys/Amanda Pulse Ox Last 24 Hr 98.4 F-100.6 F 52-68 12-19 104-140/60-80 98-98 GENERAL: at baseline; with mild dementia; with bilateral drains scalp LUNGS: Breath sounds equal, clear to auscultation bilaterally, no wheezes, no crackles, no accessory muscle use. HEART: Regular rate and rhythm, S1, S2 without murmur, rub or gallop. ABDOMEN: Soft, nontender, nondistended, normoactive bowel sounds, no guarding, no rebound, no hepatosplenomegaly, no masses. EXTREMITIES: 2+ pulses, warm, well-perfused, no edema. NEUROLOGICAL: Cranial nerves II through XII grossly intact. ; strength intact; sensation intact Laboratory Results - last 24 hr 06/08/18 06/08/18 05:30 05:30 WBC 9.7 RBC 3.87 L Hgb 12.3 Hct 35.3 L D MCV 91.4 MCH 31.8 MCHC 34.8 RDW 12.5 Plt Count 140 MPV 8.7 Sodium 139 Potassium 3.6 Chloride 107 Carbon Dioxide 26 Anion Gap 7 L BUN 15 Creatinine 0.7 Creat Clearance w eGFR 110.24 Random Glucose 112 H Calcium 8.1 L Phosphorus 4.0 Magnesium 2.2 Active Medications Generic Name Dose Route Start Last Admin Trade Name Freq PRN Reason Stop Dose Admin Acetaminophen 650 mg 06/07/18 04:24 Tylenol Suppository - [place] Q4H PRN FEVER Acetaminophen/Codeine Phosphate 1 tab 06/07/18 14:36 Tylenol # 3 - PO Q4H PRN PAIN LEVEL 4 - 6 Albumin Human 25 gm 06/07/18 16:15 06/08/18 17:32 Albumin Human 25% - IVPB 25 gm Q6H-IV [facility] Administration Chlorhexidine Gluconate 1 applic 06/07/18 22:00 06/07/18 21:39 Hibiclens For Decolonization - TP 1 applic HS [facility] Administration Docusate Sodium 100 mg 06/07/18 22:00 06/08/18 14:33 Colace - PO Not Given TID RAMBO Donepezil HCl 10 mg 06/07/18 22:00 06/07/18 22:21 Aricept - PO Not Given HS RAMBO Sodium Chloride 1,000 mls @ 75 mls/hr 06/07/18 04:30 06/08/18 05:20 Normal Saline - IV Not Given ASDIR [facility] Dextrose/Sodium Chloride 20 meq in 1,000 mls @ 80 mls/hr 06/07/18 14:45 06/08 17:33 Dextrose 5%-Normal Saline+20 Meq Kcl - IV 80 mls/hr ASDIR [facility] Administration Levetiracetam 500 mg 06/07/18 22:00 06/08/18 09:28 Keppra Injection - IVPB 500 mg BID [facility] Administration Mupirocin 1 applic 06/07/18 10:00 06/08/18 09:29 Bactroban Ointment (For Decolonization) - NS 06/12/18 09:59 1 applic BID [facility] Administration Ondansetron HCl 4 mg 06/07/18 14:36 Zofran Injection IVPUSH Q6H PRN NAUSEA Ondansetron HCl 4 mg 06/07/18 15:12 Zofran Injection IVPUSH Q6H PRN NAUSEA AND/OR VOMITING Pantoprazole Sodium 40 mg 06/08/18 10:00 06/08/18 09:28 Protonix Iv IVPUSH 40 mg DAILY [facility] Administration Promethazine HCl 12.5 mg 06/07/18 15:12 Phenergan Injection - IVPUSH Q6H PRN NAUSEA-FOR RESCUE AFTER 15 MIN Saliva Substitute 1 applic 06/07/18 18:30 06/08/18 09:29 Mouthkote Solution - MM 1 applic DAILY [facility] Administration ASSESSMENT/PLAN: This is a 72 year old male with dementia; who presents with headache and found to have a 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 - New Patient This patient is new to me today: No - Critical Care Critical Care patient: Yes Total Critical Care Time (in minutes): 45 Critical Care Statement: The care of this patient involved high complexity decision making to prevent further life threatening deterioration of the patient 's condition and/or to evaluate & treat vital organ system(s) failure or risk of failure.
--- NOTE | 2018-06-08 18:20 | PN ---
Teaching Attending Note Name of Resident: Cheyenne Encinas ATTENDING PHYSICIAN STATEMENT I saw and evaluated the patient. I reviewed the resident's note and discussed the case with the resident. I agree with the resident's findings and plan as documented. SUBJECTIVE: Mr Carpio complains of some head pain but otherwise says he is doing well. No cp, sob, n/v OBJECTIVE: Last Vital Signs Temp Pulse Resp BP Pulse Ox 38.1 C H 56 L 16 125/76 98 06/08/18 14:00 06/08/18 16:00 06/08/18 16:00 06/08/18 16:00 06/08/18 09:00 Gen: nad Pulm: ctab w/o w/r/r CV: rrr w/o m/r/g Abd: +bs, s/nt/nd Ext: no c/c/e CBC, BMP 06/08/18 05:30 06/08/18 05:30 ASSESSMENT AND PLAN: -neurosurgery following -CT scan to be reviewed by Dr José betancourt for seizure prophylaxis -continue current management Problem List - Problems (1) Subdural hematoma Code(s): S06.5X9A - TRAUM SUBDR HEM W LOC OF UNSP DURATION, INIT
[2018-06-08] MEDS: ACETAMINOPHEN 1000 MG/100 ML VIAL (NON FORMULARY) IVPB PRN (20:00)
[2018-06-08] MEDS: DONEPEZIL HCL 10 MG TABLET (FP) PO SCH (21:18)
[2018-06-08] MEDS: CHLORHEXIDINE GLUCONATE 4% CLEANSER FOR DECOLONIZATION TP SCH (22:11)
[2018-06-08] MEDS: ONDANSETRON 4 MG/2 ML VIAL IVPUSH PRN (22:21)
[2018-06-09] MEDS: DOCUSATE SODIUM 100 MG CAPSULE (FP) PO SCH ×3 (05:01→21:06)
--- NOTE | 2018-06-09 08:40 | PN ---
Progress Note (short form) - Note Progress Note: PULM/CCM Pt seen & Examined in the ICU, CA+OX3, states feel well. Active Medications Acetaminophen/Codeine Phosphate (Tylenol # 3 -) 1 tab PO Q4H PRN PRN Reason: PAIN LEVEL 4 - 6 Docusate Sodium (Colace -) 100 mg PO TID COUNTS [facility] 234 BEDS AT [facility] Last Admin: 06/09/18 21:06 Dose: 100 mg Donepezil HCl (Aricept -) 10 mg PO HS COUNTS INCLUDE 234 BEDS AT THE [facility] Last Admin: 06/09/18 21:07 Dose: 10 mg Dextrose/Sodium Chloride (Dextrose 5%-Normal Saline+20 Meq Kcl -) 20 meq in 1, 000 mls @ 80 mls/hr IV ASDIR COUNTS INCLUDE 234 BEDS AT THE [facility] Last Admin: 06/09/18 17:19 Dose: 80 mls/hr Levetiracetam (Keppra Injection -) 500 mg IVPB BID COUNTS INCLUDE 234 BEDS AT THE [facility] Last Admin: 06/09/18 21:07 Dose: 500 mg Ondansetron HCl (Zofran Injection) 4 mg IVPUSH Q6H PRN PRN Reason: NAUSEA Last Admin: 06/08/18 22:21 Dose: 4 mg Ondansetron HCl (Zofran Injection) 4 mg IVPUSH Q6H PRN PRN Reason: NAUSEA AND/OR VOMITING Pantoprazole Sodium (Protonix Iv) 40 mg IVPUSH DAILY COUNTS INCLUDE 234 BEDS AT THE [facility] Last Admin: 06/09/18 09:07 Dose: 40 mg Promethazine HCl (Phenergan Injection -) 12.5 mg IVPUSH Q6H PRN PRN Reason: NAUSEA-FOR RESCUE AFTER 15 MIN Saliva Substitute (Mouthkote Solution -) 1 applic MM DAILY COUNTS INCLUDE 234 BEDS AT THE [facility] Last Admin: 06/09/18 09:07 Dose: 1 applic Vital Signs Period Temp Pulse Resp BP Sys/Amanda Pulse Ox Last 24 Hr 98 F-98.9 F 49-66 13-16 113-141/63-81 98-98 Intake & Output 06/07/18 06/08/18 06/09/18 06/10/18 23:59 23:59 23:59 23:59 Intake Total 3265 1990 2760 Output Total 1471 6005 1765 Balance 480 -405 995 Weight 87.997 kg 92.6 kg 92.533 kg Gen: Awake and alert, NAD at rest Heart: RRR Lung: decreased breath sounds at the bases Abd: soft, nontender Ext: no edema CBC, BMP 06/08/18 05:30 06/08/18 05:30 Microbiology 06/07/18 13:38 Brain Fluid Gram Stain - Final 06/07/18 13:38 Brain Fluid Body Fluid Culture - Preliminary NO AEROBIC GROWTH, 24 HRS 06/07/18 13:38 Brain Fluid Anaerobic Culture - Final NO ANAEROBES WERE ISOLATED 06/07/18 13:35 Brain Fluid Gram Stain - Final 06/07/18 13:35 Brain Fluid Body Fluid Culture - Preliminary NO AEROBIC GROWTH, 24 HRS 06/07/18 13:35 Brain Fluid Anaerobic Culture - Final NO ANAEROBES WERE ISOLATED 06/06/18 20:48 Urine - Urine Clean Catch Urine Culture - Final NO GROWTH OBTAINED [facility] 06/09: Status post bilateral frontal craniotomies in comparison to a CT exam of 06/07/2018. Status post evacuation of bilateral frontoparietal convexity subdural hematomas. Small to moderate size bilateral subdural hygromas are again visualized with partial effacement of the subjacent cerebral sulci. A small amount of acute blood is seen within the frontal subdural spaces bilaterally as well as a small amount of postsurgical air accumulation. No midline displacement is seen. ASSESSMENT AND PLAN: s/p Fall Bilateral Subacute Hematomas with mass effect h/o DVT Dementia - AEDs - IVFs - pain control - mechanical DVT prophylaxis - continue ICU monitoring for close neuro checks [facility] ICU PULM/CCM 0748
[2018-06-09] MEDS ORDERED: PT OWN MED DRAWER 7, Y5N ONE ×3 (08:56→16:50)
[2018-06-09] MEDS: ACETAMINOPHEN 1000 MG/100 ML VIAL (NON FORMULARY) IVPB PRN (09:01)
[2018-06-09] MEDS: levETIRAcetam 500 MG/5 ML INJECTION VIAL IVPB SCH ×2 (09:05→21:07)
[2018-06-09] MEDS: MUPIROCIN 2% TOPICAL OINTMENT FOR DECOLONIZATION NS SCH (09:05)
[2018-06-09] MEDS: ALBUMIN HUMAN 25% 100 ML VIAL IVPB SCH ×3 (09:06→17:27)
[2018-06-09] MEDS: LYTES/YERBA SANTA 240 ML BOTTLE MM SCH (09:07)
[2018-06-09] MEDS: PANTOPRAZOLE SODIUM 40 MG VIAL IVPUSH SCH (09:07)
--- NOTE | 2018-06-09 09:47 | PN ---
Progress Note (short form) - Note Progress Note: NEUROSURGERY POD #2 In ICU Some H/a yesterday H/A better, no N/V PE: Tmax 101.1, now 98,7, VSS Drain L/R 190(more CSF appearing)/20 HEENT- NC/AT; Neck- supple; Cor- RRR; Lungs- CTA B; Abd- benign; Ext- no sign of DVT Danish speaking CN- PERRL, EOMF, face symmetric, tongue midline; Motor- at least 4+/5 B UE/LE without drift; Sensation- intact; DTR- 1+; toes upgoing B Head CT- some residual fluids and pneumocephalus, unchanged from 06-08-18 scan, improved c/w pre-op Acute on chronic L > R lateral fronto-parietal convexity SDH s/p B craniotomy and drain placement Cont Keppra Bedrest with HOB flat x at least 30 hours more while drain in place Complete albumin infusion for [address] today, if improved can start diet Drain instructions and HOB position d/w ICU team d/c drain to avoid over drainage (drain out after cleaning with betadine) Incentive spirometry Family at bedside HOB up at 1300 D/C [place] when OOB All questions answered
--- NOTE | 2018-06-09 10:08 | PN ---
Progress Note, Physician Chief Complaint: Mr Carpio complains of pain from the surgery but otherwise without complaint. No cp, sob, n/v. - Current Medication List Current Medications: Active Medications Acetaminophen/Codeine Phosphate (Tylenol # 3 -) 1 tab PO Q4H PRN PRN Reason: PAIN LEVEL 4 - 6 Albumin Human (Albumin Human 25% -) 25 gm IVPB Q6H-IV [facility] Last Admin: 06/09/18 09:06 Dose: 25 gm Chlorhexidine Gluconate (Hibiclens For Decolonization -) 1 applic TP HS [facility] Last Admin: 06/08/18 22:11 Dose: 1 applic Docusate Sodium (Colace -) 100 mg PO TID [facility] Last Admin: 06/09/18 05:01 Dose: Not Given Donepezil HCl (Aricept -) 10 mg PO HS [facility] Last Admin: 06/08/18 21:18 Dose: Not Given Dextrose/Sodium Chloride (Dextrose 5%-Normal Saline+20 Meq Kcl -) 20 meq in 1, 000 mls @ 80 mls/hr IV ASDIR [facility] Last Admin: 06/08/18 22:13 Dose: 80 mls/hr Levetiracetam (Keppra Injection -) 500 mg IVPB BID [facility] Last Admin: 06/09/18 09:05 Dose: 500 mg Mupirocin (Bactroban Ointment (For Decolonization) -) 1 applic NS BID [facility] Stop: 06/12/18 09:59 Last Admin: 06/09/18 09:05 Dose: 1 applic Ondansetron HCl (Zofran Injection) 4 mg IVPUSH Q6H PRN PRN Reason: NAUSEA Last Admin: 06/08/18 22:21 Dose: 4 mg Ondansetron HCl (Zofran Injection) 4 mg IVPUSH Q6H PRN PRN Reason: NAUSEA AND/OR VOMITING Pantoprazole Sodium (Protonix Iv) 40 mg IVPUSH DAILY [facility] Last Admin: 06/09/18 09:07 Dose: 40 mg Promethazine HCl (Phenergan Injection -) 12.5 mg IVPUSH Q6H PRN PRN Reason: NAUSEA-FOR RESCUE AFTER 15 MIN Saliva Substitute (Mouthkote Solution -) 1 applic MM DAILY [facility] Last Admin: 06/09/18 09:07 Dose: 1 applic - Objective Vital Signs: Vital Signs Temperature 37.1 C 06/09/18 06:00 Pulse Rate 56 L 06/09/18 06:00 Respiratory Rate 14 06/09/18 06:00 Blood Pressure 121/64 06/09/18 06:00 O2 Sat by Pulse Oximetry (%) 98 06/08/18 23:11 Constitutional: Yes: Well Nourished, No Distress, Calm HENT: Yes: Other (head bandaged, drain in place) Cardiovascular: Yes: Regular Rate and Rhythm. No: Gallop, Murmur, Rub Respiratory: Yes: Regular, CTA Bilaterally. No: Rales, Rhonchi, Wheezes Gastrointestinal: Yes: Normal Bowel Sounds, Soft. No: Distention, Tenderness Extremities: Yes: WNL Edema: No Labs: CBC, BMP 06/08/18 05:30 06/08/18 05:30 INR, PTT INR 1.08 (0.83-1.09) 06/07/18 08:42 Problem List - Problems (1) Subdural hematoma Assessment/Plan: -neurosurgery following and note reviewed -head CT performed and no change per radiology -continue current management -continue [facility] Code(s): S06.5X9A - TRAUM SUBDR HEM W LOC OF UNSP DURATION, INIT
[2018-06-09 16:15] VITALS: BMI 27.6
--- NOTE | 2018-06-09 16:44 | PN ---
Progress Note (short form) - Note Progress Note: PAtient seen and examined awake , alert feels ok Last Vital Signs Temp Pulse Resp BP Pulse Ox 98.7 F 60 14 138/81 98 06/09/18 12:00 06/09/18 16:00 06/09/18 16:00 06/09/18 16:00 06/09/18 09:00 Cor: RSR, No murmurs, No gallops Lungs: Clear to P&A Abd: Soft, Normal bowel sounds, No organomegaly Ext:No significant edema Labs/Meds reviewed A/P 72 y/o patient with dementia, fall 1 month ago, evaluated at [facility] now with b/l subdural hematomas, s/p neurosurgical drainage . nl cbc/pt/ptt remote h/o dvt and was on eliquis in 2013 but not on eliquis for last several yrs. not on asa h/o varicose veins. Family repoorts 1 episode of VTE ? related to varicose vains back in [id number] discussed with son
[2018-06-09] MEDS: D5-NS + 20 MEQ KCL - 20 MEQ/1,000 ML INFUS.BAG IV SCH (17:19)
[2018-06-09] MEDS: DONEPEZIL HCL 10 MG TABLET (FP) PO SCH (21:07)
[2018-06-09] MEDS ORDERED: AMIODARONE HCL 150 MG/3 ML VIAL ONE (21:30)
[2018-06-10] MEDS: ACETAMINOPHEN WITH CODEINE 300MG/30MG TABLET PO PRN ×3 (00:42→09:57)
[2018-06-10] MEDS: D5-NS + 20 MEQ KCL - 20 MEQ/1,000 ML INFUS.BAG IV SCH ×2 (00:45→18:00)
[2018-06-10] MEDS: DOCUSATE SODIUM 100 MG CAPSULE (FP) PO SCH ×3 (05:35→21:20)
[2018-06-10 06:12] LABS: BASO % 0.5 % (0-2.0); EOS % 3.2 % (0-4.5); HEMATOCRIT 35.2 % (35.4-49); HEMOGLOBIN 12.3 GM/dL (11.7-16.9); LYMPH % 24.8 % (8-40); MCH 31.5 pg (25.7-33.7); MCHC 34.9 g/dl (32.0-35.9); MEAN CELL VOLUME 90.2 fl (80-96); MEAN PLT VOLUME 8.5 fl (7.5-11.1); MONO % 11.1 % (3.8-10.2); NEUT % 60.4 % (42.8-82.8); PLATELET COUNT 130 K/MM3 (134-434); RDW 12.2 % (11.9-15.9); WHITE BLOOD COUNT 8.9 K/mm3 (4.0-10.0)
[2018-06-10 06:42] LABS: ANION GAP 8 MMOL/L (8-16); BLOOD UREA NITROGEN 17 mg/dL (7-18); CALCIUM 8.4 mg/dL (8.5-10.1); CHLORIDE 106 mmol/L (98-107); CO2 25 mmol/L (21-32); CREATININE 0.6 mg/dL (0.55-1.3); GLUCOSE,RANDOM 110 mg/dL (74-106); MAGNESIUM 2.2 mg/dL (1.8-2.4); PHOSPHOROUS 3.4 mg/dL (2.5-4.9); POTASSIUM 3.7 mmol/L (3.5-5.1); SODIUM 139 mmol/L (136-145)
--- NOTE | 2018-06-10 08:37 | PN ---
Progress Note (short form) - Note Progress Note: NEUROSURGERY POD #3 In ICU Mild frontal H/A earlier PE: Tmax 99.9, VSS Brother at bedside HEENT- NC/AT; Neck- supple; Cor- RRR; Lungs- CTA B; Abd- benign; Ext- no sign of DVT Yoruba speaking CN- PERRL, EOMF, face symmetric, tongue midline; Motor- at least 4+/5 B UE/LE without drift; Sensation- intact; DTR- 1+; toes upgoing B Head CT- some residual fluids and pneumocephalus, unchanged from 3-- scan, improved c/w pre-op Acute on chronic L > R lateral fronto-parietal convexity SDH s/p B craniotomy and drain placement Cont Keppra OOB/PT Adv diet Incentive spirometry Family at bedside All questions answered
--- NOTE | 2018-06-10 09:10 | PN ---
Progress Note (short form) - Note Progress Note: PULM/CCM Pt seen & Examined in the ICU, CA+OX3, PLUNKETT persists but eating now w/ an IV Zofran chaser. Active Medications Acetaminophen/Codeine Phosphate (Tylenol # 3 -) 1 tab PO Q4H PRN PRN Reason: PAIN LEVEL 4 - 6 Last Admin: 06/10/18 09:57 Dose: 1 tab Docusate Sodium (Colace -) 100 mg PO TID [facility] Last Admin: 06/10/18 05:35 Dose: 100 mg Donepezil HCl (Aricept -) 10 mg PO HS [facility] Last Admin: 06/09/18 21:07 Dose: 10 mg Dextrose/Sodium Chloride (Dextrose 5%-Normal Saline+20 Meq Kcl -) 20 meq in 1, 000 mls @ 80 mls/hr IV ASDIR [facility] Last Admin: 06/10/18 00:45 Dose: 80 mls/hr Levetiracetam (Keppra Injection -) 500 mg IVPB BID [facility] Last Admin: 06/10/18 09:57 Dose: 500 mg Ondansetron HCl (Zofran Injection) 4 mg IVPUSH Q6H PRN PRN Reason: NAUSEA Last Admin: 06/10/18 12:15 Dose: 4 mg Ondansetron HCl (Zofran Injection) 4 mg IVPUSH Q6H PRN PRN Reason: NAUSEA AND/OR VOMITING Pantoprazole Sodium (Protonix Iv) 40 mg IVPUSH DAILY [facility] Last Admin: 06/10/18 09:58 Dose: 40 mg Promethazine HCl (Phenergan Injection -) 12.5 mg IVPUSH Q6H PRN PRN Reason: NAUSEA-FOR RESCUE AFTER 15 MIN Saliva Substitute (Mouthkote Solution -) 1 applic MM DAILY [facility] Last Admin: 06/10/18 10:07 Dose: Not Given Vital Signs Period Temp Pulse Resp BP Sys/Amanda Pulse Ox Last 24 Hr 97.7 F-99.9 F 55-66 12-20 120-151/61-91 98-99 Intake & Output 06/09/18 06/10/18 06/10/18 23:59 07:59 15:59 Intake Total 1600 Output Total 555 275 Balance 1045 -275 Weight 92.533 kg Gen: Awake and alert, NAD at rest Heart: RRR Lung: decreased breath sounds at the bases Abd: soft, nontender Ext: no edema CBC, BMP 06/10/18 05:30 06/10/18 05:30 Microbiology 06/07/18 13:38 Brain Fluid Gram Stain - Final 06/07/18 13:38 Brain Fluid Body Fluid Culture - Final NO GROWTH OF AEROBIC ORGANISMS AFTER 48 HOURS INCUBATION 06/07/18 13:38 Brain Fluid Anaerobic Culture - Final NO ANAEROBES WERE ISOLATED 06/07/18 13:35 Brain Fluid Gram Stain - Final 06/07/18 13:35 Brain Fluid Body Fluid Culture - Final NO GROWTH OF AEROBIC ORGANISMS AFTER 48 HOURS INCUBATION 06/07/18 13:35 Brain Fluid Anaerobic Culture - Final NO ANAEROBES WERE ISOLATED 06/06/18 20:48 Urine - Urine Clean Catch Urine Culture - Final NO GROWTH OBTAINED [facility] 06/09: Status post bilateral frontal craniotomies in comparison to a CT exam of 06/07/2018. Status post evacuation of bilateral frontoparietal convexity subdural hematomas. Small to moderate size bilateral subdural hygromas are again visualized with partial effacement of the subjacent cerebral sulci. A small amount of acute blood is seen within the frontal subdural spaces bilaterally as well as a small amount of postsurgical air accumulation. No midline displacement is seen. ASSESSMENT AND PLAN: s/p Fall Bilateral Subacute Hematomas with mass effect h/o DVT Dementia - AEDs - IVFs - pain control - Zofran - Advance Diet - mechanical DVT prophylaxis - Transfer to NEURO SDU [facility] ICU PULM/CCM [id number]
[2018-06-10] MEDS: levETIRAcetam 500 MG/5 ML INJECTION VIAL IVPB SCH ×2 (09:57→21:20)
[2018-06-10] MEDS: PANTOPRAZOLE SODIUM 40 MG VIAL IVPUSH SCH (09:58)
[2018-06-10] MEDS: LYTES/YERBA SANTA 240 ML BOTTLE MM SCH (10:07)
[2018-06-10] MEDS: ONDANSETRON 4 MG/2 ML VIAL IVPUSH PRN (12:15)
--- NOTE | 2018-06-10 17:31 | PN ---
Progress Note, Physician Chief Complaint: Mr Carpio says his head pain is better today. No cp, sob, n/v. - Current Medication List Current Medications: Active Medications Docusate Sodium (Colace -) 100 mg PO TID [facility] Last Admin: 06/10/18 05:35 Dose: 100 mg Donepezil HCl (Aricept -) 10 mg PO HS [facility] Last Admin: 06/09/18 21:07 Dose: 10 mg Dextrose/Sodium Chloride (Dextrose 5%-Normal Saline+20 Meq Kcl -) 20 meq in 1, 000 mls @ 80 mls/hr IV ASDIR [facility] Last Admin: 06/10/18 00:45 Dose: 80 mls/hr Levetiracetam (Keppra Injection -) 500 mg IVPB BID [facility] Last Admin: 06/10/18 09:57 Dose: 500 mg Ondansetron HCl (Zofran Injection) 4 mg IVPUSH Q6H PRN PRN Reason: NAUSEA Last Admin: 06/10/18 12:15 Dose: 4 mg Ondansetron HCl (Zofran Injection) 4 mg IVPUSH Q6H PRN PRN Reason: NAUSEA AND/OR VOMITING Pantoprazole Sodium (Protonix Iv) 40 mg IVPUSH DAILY [facility] Last Admin: 06/10/18 09:58 Dose: 40 mg Promethazine HCl (Phenergan Injection -) 12.5 mg IVPUSH Q6H PRN PRN Reason: NAUSEA-FOR RESCUE AFTER 15 MIN Saliva Substitute (Mouthkote Solution -) 1 applic MM DAILY [facility] Last Admin: 06/10/18 10:07 Dose: Not Given - Objective Vital Signs: Vital Signs Temperature 36.8 C 06/10/18 14:00 Pulse Rate 57 L 06/10/18 16:00 Respiratory Rate 11 06/10/18 16:00 Blood Pressure 128/69 06/10/18 16:00 O2 Sat by Pulse Oximetry (%) 94 L 06/10/18 15:00 Constitutional: Yes: Well Nourished, No Distress, Calm Cardiovascular: Yes: Regular Rate and Rhythm. No: Gallop, Murmur, Rub Respiratory: Yes: Regular, CTA Bilaterally. No: Rales, Rhonchi, Wheezes Gastrointestinal: Yes: Normal Bowel Sounds, Soft. No: Distention, Tenderness Extremities: Yes: WNL Edema: No Labs: CBC, BMP 06/10/18 05:30 06/10/18 05:30 INR, PTT INR 1.08 (0.83-1.09) 06/07/18 08:42 Problem List - Problems (1) Subdural hematoma Assessment/Plan: -neurosurgery following and note reviewed -repeat head CT today, unchanged -continue current management -continue [facility] Code(s): S06.5X9A - TRAUM SUBDR HEM W LOC OF UNSP DURATION, INIT
[2018-06-10] MEDS ORDERED: HYDROmorphone HCl 2 MG/ML VIAL IVPUSH STA (18:00)
[2018-06-10] MEDS ORDERED: ACETAMINOPHEN 1000 MG/100 ML VIAL (NON FORMULARY) IVPB ONE (20:21)
[2018-06-10] MEDS: DONEPEZIL HCL 10 MG TABLET (FP) PO SCH (21:20)
[2018-06-10] MEDS ORDERED: ONDANSETRON 4 MG/2 ML VIAL IVPUSH PRN (22:23)
[2018-06-10] MEDS ORDERED: PROMETHAZINE HCL 25 MG/1 ML VIAL IVPUSH PRN (22:23)
[2018-06-11] MEDS ORDERED: ACETAMINOPHEN 500 MG TABLET (FP) PO ONE (04:45)
[2018-06-11] MEDS: ONDANSETRON 4 MG/2 ML VIAL IVPUSH PRN (04:56)
[2018-06-11] MEDS: DOCUSATE SODIUM 100 MG CAPSULE (FP) PO SCH ×3 (05:41→21:12)
--- NOTE | 2018-06-11 08:15 | PN ---
Progress Note (short form) - Note Progress Note: NEUROSURGERY POD #4 In ICU Mild frontal H/A Nausea when trying to drink soup PE: Tmax 98.7, VSS Brother at bedside HEENT- NC/AT; Neck- supple; Cor- RRR; Lungs- CTA B; Abd- benign; Ext- no sign of DVT Ghanaian speaking CN- PERRL, EOMF, face symmetric, tongue midline; Motor- at least 4+/5 B UE/LE without drift; Sensation- intact; DTR- 1+; toes upgoing B Head CT- some residual fluids and pneumocephalus, unchanged from 3-- scan, improved c/w pre-op Acute on chronic L > R lateral fronto-parietal convexity SDH s/p B craniotomy for SDH Cont Keppra OOB/PT F/u head CT Adv diet Incentive spirometry All questions answered
[2018-06-11 08:18] LABS: BASO % 0.4 % (0-2.0); EOS % 3.9 % (0-4.5); HEMATOCRIT 37.1 % (35.4-49); HEMOGLOBIN 13.3 GM/dL (11.7-16.9); LYMPH % 24.1 % (8-40); MCH 32.5 pg (25.7-33.7); MCHC 35.7 g/dl (32.0-35.9); MEAN CELL VOLUME 90.9 fl (80-96); MONO % 9.3 % (3.8-10.2); NEUT % 62.3 % (42.8-82.8); PLATELET COUNT 151 K/MM3 (134-434); RBC 4.08 M/mm3 (4.00-5.60); RDW 12.1 % (11.9-15.9); WHITE BLOOD COUNT 9.6 K/mm3 (4.0-10.0)
[2018-06-11 08:38] LABS: ANION GAP 7 MMOL/L (8-16); BLOOD UREA NITROGEN 11 mg/dL (7-18); CALCIUM 7.9 mg/dL (8.5-10.1); CHLORIDE 106 mmol/L (98-107); CO2 26 mmol/L (21-32); CREATININE 0.7 mg/dL (0.55-1.3); GLUCOSE,RANDOM 114 mg/dL (74-106); PHOSPHOROUS 3.6 mg/dL (2.5-4.9); POTASSIUM 3.9 mmol/L (3.5-5.1); SODIUM 139 mmol/L (136-145)
[2018-06-11] MEDS: levETIRAcetam 500 MG/5 ML INJECTION VIAL IVPB SCH ×2 (09:49→21:13)
[2018-06-11] MEDS: PANTOPRAZOLE SODIUM 40 MG VIAL IVPUSH SCH (09:49)
[2018-06-11] MEDS: D5-NS + 20 MEQ KCL - 20 MEQ/1,000 ML INFUS.BAG IV SCH ×2 (12:44→23:30)
[2018-06-11] MEDS: ACETAMINOPHEN 325 MG TABLET (FP) PO PRN ×2 (12:52→22:48)
[2018-06-11] MEDS: LYTES/YERBA SANTA 240 ML BOTTLE MM SCH (14:31)
[2018-06-11] MEDS ORDERED: PT OWN MED DRAWER 7, Y5N ONE (17:29)
--- NOTE | 2018-06-11 17:31 | PN ---
Physical Exam: SUBJECTIVE: Patient seen and examined; sitting up in bed eating breakfast; no complaints; drains out OBJECTIVE: Vital Signs Period Temp Pulse Resp BP Sys/Amanda Pulse Ox Last 24 Hr 97.6 F-98.7 F 58-86 10-20 124-156/62-82 95-95 GENERAL: The patient is awake, alert, and fully oriented, in no acute distress.; -head: b/l drains out; no no swelling; erythema NECK: Trachea midline, full range of motion, supple. LUNGS: Breath sounds equal, clear to auscultation bilaterally, no wheezes, no crackles, no accessory muscle use. HEART: Regular rate and rhythm, S1, S2 without murmur, rub or gallop. ABDOMEN: Soft, nontender, nondistended, normoactive bowel sounds, no guarding, no rebound, no hepatosplenomegaly, no masses. EXTREMITIES: 2+ pulses, warm, well-perfused, no edema. NEUROLOGICAL: Cranial nerves II through XII grossly intact. Normal speech, gait not observed. Laboratory Results - last 24 hr 06/11/18 06/11/18 06:00 07:10 WBC 9.6 RBC 4.08 Hgb 13.3 Hct 37.1 MCV 90.9 MCH 32.5 MCHC 35.7 RDW 12.1 Plt Count 151 MPV 9.0 Absolute Neuts (auto) 6.0 Neutrophils % 62.3 Lymphocytes % 24.1 Monocytes % 9.3 Eosinophils % 3.9 Basophils % 0.4 Nucleated RBC % 0 Sodium 139 Potassium 3.9 Chloride 106 Carbon Dioxide 26 Anion Gap 7 L BUN 11 Creatinine 0.7 Creat Clearance w eGFR 110.24 Random Glucose 114 H Calcium 7.9 L Phosphorus 3.6 Magnesium 2.0 Active Medications Generic Name Dose Route Start Last Admin Trade Name Freq PRN Reason Stop Dose Admin Acetaminophen 650 mg 06/11/18 12:32 06/11/18 12:52 Tylenol - PO 650 mg Q4H PRN Administration HEADACHE Docusate Sodium 100 mg 06/11/18 06:00 06/11/18 13:10 Colace - PO 100 mg TID [facility] Administration Donepezil HCl 10 mg 06/11/18 22:00 Aricept - PO HS [facility] Dextrose/Sodium Chloride 20 meq in 1,000 mls @ 80 mls/hr 06/10/18 22:23 06/11 12:44 Dextrose 5%-Normal Saline+20 Meq Kcl - IV 80 mls/hr ASDIR [facility] Administration Levetiracetam 500 mg 06/11/18 10:00 06/11/18 09:49 Keppra Injection - IVPB 500 mg BID [facility] Administration Ondansetron HCl 4 mg 06/10/18 22:23 06/11/18 04:56 Zofran Injection IVPUSH 4 mg Q6H PRN Administration NAUSEA Pantoprazole Sodium 40 mg 06/11/18 10:00 06/11/18 09:49 Protonix Iv IVPUSH 40 mg DAILY [facility] Administration Saliva Substitute 1 applic 06/11/18 10:00 06/11/18 14:31 Mouthkote Solution - MM Not Given DAILY [facility] ASSESSMENT/PLAN: This is a 72 year old male with dementia; who presents with headache and found to have a large bilateral acute on chronic subdural hematoma #Bilateral subdural hematoma; s/p craniotomy -S/p; Rt frontal craniotomy for evacuation of SDH; Lt frontal craniotomy for evacuation of SDH, microsurgical dissection, Bilateral subdural drain placement -bp control -neuro checks -empiric AE; emp antibiotcs -neurosx following -stable; with b/l drains out today #VTE:scds #GI; protonix Disposition: plan to dc tomorrow Visit type - Emergency Visit Emergency Visit: Yes ED Registration Date: 06/07/18 Care time: The patient presented to the Emergency Department on the above date and was hospitalized for further evaluation of their emergent condition. - New Patient This patient is new to me today: No - Critical Care Critical Care patient: No
--- NOTE | 2018-06-11 18:09 | PN ---
Teaching Attending Note Name of Resident: Cheyenne Encinas ATTENDING PHYSICIAN STATEMENT I saw and evaluated the patient. I reviewed the resident's note and discussed the case with the resident. I agree with the resident's findings and plan as documented. SUBJECTIVE: Mr Carpio complains of headache but otherwise is without complaint. No cp, sob, n/v. OBJECTIVE: Last Vital Signs Temp Pulse Resp BP Pulse Ox 36.8 C 69 18 124/69 95 06/11/18 14:00 06/11/18 14:00 06/11/18 14:00 06/11/18 14:00 06/11/18 09:00 Gen: nad Pulm: ctab w/o w/r/r CV: rrr w/o m/r/g Abd: +bs, s/nt/nd Ext: no c/c/e CBC, BMP 06/11/18 06:00 06/11/18 07:10 ASSESSMENT AND PLAN: (1) Subdural hematoma Assessment/Plan: -neurosurgery following -continue current management -tylenol prn for headache -plan for discharge tomorrow -patient/family declining SNF Code(s): S06.5X9A - TRAUM SUBDR HEM W LOC OF UNSP DURATION, INIT Problem List - Problems (1) Subdural hematoma Code(s): S06.5X9A - TRAUM SUBDR HEM W LOC OF UNSP DURATION, INIT
[2018-06-11] MEDS: DONEPEZIL HCL 10 MG TABLET (FP) PO SCH (21:13)
[2018-06-12] MEDS: ACETAMINOPHEN 325 MG TABLET (FP) PO PRN ×5 (02:15→21:12)
[2018-06-12] MEDS: DOCUSATE SODIUM 100 MG CAPSULE (FP) PO SCH ×3 (06:26→21:12)
[2018-06-12] MEDS: ALBUMIN HUMAN 25% 100 ML VIAL IVPB SCH (07:36)
[2018-06-12 08:09] LABS: BASO % 0.5 % (0-2.0); EOS % 3.1 % (0-4.5); HEMOGLOBIN 13.4 GM/dL (11.7-16.9); LYMPH % 25.8 % (8-40); MCH 32.3 pg (25.7-33.7); MCHC 35.3 g/dl (32.0-35.9); MEAN CELL VOLUME 91.5 fl (80-96); MEAN PLT VOLUME 9.2 fl (7.5-11.1); MONO % 9.7 % (3.8-10.2); NEUT % 60.9 % (42.8-82.8); PLATELET COUNT 163 K/MM3 (134-434); RBC 4.15 M/mm3 (4.00-5.60); RDW 12.2 % (11.9-15.9)
[2018-06-12 08:48] LABS: ANION GAP 8 MMOL/L (8-16); BLOOD UREA NITROGEN 13 mg/dL (7-18); CALCIUM 8.5 mg/dL (8.5-10.1); CHLORIDE 104 mmol/L (98-107); CO2 24 mmol/L (21-32); CREATININE 0.6 mg/dL (0.55-1.3); GLUCOSE,RANDOM 126 mg/dL (74-106); MAGNESIUM 2.2 mg/dL (1.8-2.4); PHOSPHOROUS 3.6 mg/dL (2.5-4.9); POTASSIUM 3.7 mmol/L (3.5-5.1); SODIUM 136 mmol/L (136-145)
[2018-06-12] MEDS ORDERED: methylPREDNISolone NA SUCC 40 MG/1 ML VIAL IVPUSH SCH (10:00)
[2018-06-12] MEDS ORDERED: NICOTINE 7 MG/24 HOURS TOPICAL PATCH TD SCH (10:00)
[2018-06-12] MEDS ORDERED: PT OWN MED DRAWER 7, Y5N ONE (10:08)
[2018-06-12] MEDS: levETIRAcetam 500 MG/5 ML INJECTION VIAL IVPB SCH ×2 (10:12→21:13)
[2018-06-12] MEDS: LYTES/YERBA SANTA 240 ML BOTTLE MM SCH (10:16)
[2018-06-12] MEDS: PANTOPRAZOLE SODIUM 40 MG VIAL IVPUSH SCH (10:23)
--- NOTE | 2018-06-12 16:49 | PN ---
Teaching Attending Note Name of Resident: Cheyenne Encinas ATTENDING PHYSICIAN STATEMENT I saw and evaluated the patient. I reviewed the resident's note and discussed the case with the resident. I agree with the resident's findings and plan as documented. SUBJECTIVE: Per daughter patient is complaining of worsening headache and nausea. No cp, sob, n/v. OBJECTIVE: Last Vital Signs Temp Pulse Resp BP Pulse Ox 37.1 C 65 18 131/65 98 06/12/18 09:00 06/12/18 09:00 06/12/18 09:00 06/12/18 09:00 06/12/18 09:00 Gen: nad Pulm: ctab w/o w/r/r CV: rrr w/o m/r/g Abd: +bs, s/nt/nd Ext: no c/c/e CBC, BMP 06/12/18 07:00 06/12/18 07:00 ASSESSMENT AND PLAN: (1) Subdural hematoma Assessment/Plan: -today has worsening headache and nausea -otherwise without complaint -evaluation by neurology -plan for discharge home tomorrow -daughter declining SNF Code(s): S06.5X9A - TRAUM SUBDR HEM W LOC OF UNSP DURATION, INIT Problem List - Problems (1) Subdural hematoma Code(s): S06.5X9A - TRAUM SUBDR HEM W LOC OF UNSP DURATION, INIT
--- NOTE | 2018-06-12 17:19 | PN ---
Physical Exam: SUBJECTIVE: Patient seen and examined; as per daughter patient more confused; saying sentences that don't make sense. +nausea; +diaphoresis as per daughter. OBJECTIVE: Vital Signs Period Temp Pulse Resp BP Sys/Amanda Pulse Ox Last 24 Hr 98.0 F-99.1 F 58-71 18-20 130-149/65-78 98 GENERAL: The patient is awake, alert, and fully oriented, in no acute distress. HEAD: drains out; no swelling; erythema EYES: PERRL, extraocular movements intact, sclera anicteric, conjunctiva clear. No ptosis. ENT: Ears normal, nares patent, oropharynx clear without exudates, moist mucous membranes. NECK: Trachea midline, full range of motion, supple. LUNGS: Breath sounds equal, clear to auscultation bilaterally, no wheezes, no crackles, no accessory muscle use. HEART: Regular rate and rhythm, S1, S2 without murmur, rub or gallop. ABDOMEN: Soft, nontender, nondistended, normoactive bowel sounds, no guarding, no rebound, no hepatosplenomegaly, no masses. EXTREMITIES: 2+ pulses, warm, well-perfused, no edema. NEUROLOGICAL: confused basleine; altered today as per daughter PSYCH: Normal mood, normal affect. SKIN: Warm, dry, normal turgor, no rashes or lesions noted Laboratory Results - last 24 hr 06/12/18 06/12/18 07:00 07:00 WBC 8.0 RBC 4.15 Hgb 13.4 Hct 38.0 MCV 91.5 MCH 32.3 MCHC 35.3 RDW 12.2 Plt Count 163 MPV 9.2 Absolute Neuts (auto) 4.9 Neutrophils % 60.9 Lymphocytes % 25.8 Monocytes % 9.7 Eosinophils % 3.1 Basophils % 0.5 Nucleated RBC % 0 Sodium 136 Potassium 3.7 Chloride 104 Carbon Dioxide 24 Anion Gap 8 BUN 13 Creatinine 0.6 Creat Clearance w eGFR 131.70 Random Glucose 126 H Calcium 8.5 Phosphorus 3.6 Magnesium 2.2 Active Medications Generic Name Dose Route Start Last Admin Trade Name Freq PRN Reason Stop Dose Admin Acetaminophen 650 mg 06/11/18 12:32 06/12/18 15:41 Tylenol - PO 650 mg Q4H PRN Administration HEADACHE Docusate Sodium 100 mg 06/11/18 06:00 06/12/18 14:46 Colace - PO Not Given TID RAM[facility] Donepezil HCl 10 mg 06/11/18 22:00 06/11/18 21:13 Aricept - PO 10 mg HS [facility] Administration Dextrose/Sodium Chloride 20 meq in 1,000 mls @ 80 mls/hr 06/10/18 22:23 06/11 23:30 Dextrose 5%-Normal Saline+20 Meq Kcl - IV 80 mls/hr ASDIR [facility] Administration Levetiracetam 500 mg 06/11/18 10:00 06/12/18 10:12 Keppra Injection - IVPB 500 mg BID [facility] Administration Ondansetron HCl 4 mg 06/10/18 22:23 06/11/18 04:56 Zofran Injection IVPUSH 4 mg Q6H PRN Administration NAUSEA Pantoprazole Sodium 40 mg 06/11/18 10:00 06/12/18 10:23 Protonix Iv IVPUSH 40 mg DAILY [facility] Administration Saliva Substitute 1 applic 06/11/18 10:00 06/12/18 10:16 Mouthkote Solution - MM Not Given DAILY [facility] ASSESSMENT/PLAN: This is a 72 year old male with dementia; who presents with headache and found to have a large 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 will order neuro consult #VTE:scds #GI; protonix Disposition: plan to dc tomorrow Visit type - Emergency Visit Emergency Visit: Yes ED Registration Date: 06/07/18 Care time: The patient presented to the Emergency Department on the above date and was hospitalized for further evaluation of their emergent condition. - New Patient This patient is new to me today: No - Critical Care Critical Care patient: No
[2018-06-12] MEDS: DONEPEZIL HCL 10 MG TABLET (FP) PO SCH (21:12)
[2018-06-12] MEDS: ONDANSETRON 4 MG/2 ML VIAL IVPUSH PRN (21:13)
[2018-06-13] MEDS: DOCUSATE SODIUM 100 MG CAPSULE (FP) PO SCH ×2 (06:59→13:23)
[2018-06-13 07:57] LABS: BASO % 0.3 % (0-2.0); EOS % 2.6 % (0-4.5); HEMATOCRIT 38.1 % (35.4-49); HEMOGLOBIN 13.4 GM/dL (11.7-16.9); LYMPH % 26.1 % (8-40); MCH 32.3 pg (25.7-33.7); MCHC 35.3 g/dl (32.0-35.9); MEAN CELL VOLUME 91.4 fl (80-96); MONO % 9.2 % (3.8-10.2); NEUT % 61.8 % (42.8-82.8); PLATELET COUNT 168 K/MM3 (134-434); RBC 4.17 M/mm3 (4.00-5.60); RDW 12.2 % (11.9-15.9); WHITE BLOOD COUNT 9.4 K/mm3 (4.0-10.0)
[2018-06-13] MEDS: D5-NS + 20 MEQ KCL - 20 MEQ/1,000 ML INFUS.BAG IV SCH (08:04)
[2018-06-13 08:20] LABS: ANION GAP 6 MMOL/L (8-16); BLOOD UREA NITROGEN 11 mg/dL (7-18); CALCIUM 8.6 mg/dL (8.5-10.1); CHLORIDE 104 mmol/L (98-107); CO2 24 mmol/L (21-32); CREATININE 0.6 mg/dL (0.55-1.3); GLUCOSE,RANDOM 120 mg/dL (74-106); MAGNESIUM 2.1 mg/dL (1.8-2.4); SODIUM 135 mmol/L (136-145)
--- NOTE | 2018-06-13 09:26 | CONSULT ---
Consult - text type - Consultation Consultation Note: Neurology CHIEF COMPLAINT: headache HISTORY OF PRESENT ILLNESS: 72 year old male with a significant past medical history of Dementia, who initially presented to the ED with complaints of head pain that began x2 days prior to admission. Patient reported experiencing frontal head pain he stated was a throbbing pain that waxes and wanes as well as associated chills, and vomiting, having x2 episodes. Reportedly, patient was given tylenol and ibuprofen for head pain with minimal relief. Reportedly experienced a fall one month ago and had reportedly been seen at [facility] and discharged. CT head here showed b/l subdural hematomas. Reviewed images and reports of scans from , 06/08, 06/09, 06/11, 06/12. MRI brain from 06/07 also reviewed and discussed. The patient underwent surgical intervention with Dr. Gianfranco Kumar with improvement in blood product reduction. However, consulted for altered mental status and had extensive discussion with daughter in law at bedside and son on the phone explain continued blood products could take weeks to months to resorb and patient may have residual confusion and cognitive difficulty especially in context of his h/o dementia. He has been put on keppra for seizure prevention and does not demonstrate evidence of seizure like activity. Family understood this and asked about next steps. Explained short term rehab may be in his best interest for ambulation, gait, fall prevention. Recent Travel: denies PAST MEDICAL HISTORY: Dementia , PVD was on Eliquis for 6 months only in the past PAST SURGICAL HISTORY: Hernia , PVD surgery Social History: Smoking:denies Alcohol:denies Drugs: denies Family History: HTN Allergies No Known Drug Allergies Allergy (Verified 06/06/18 19:48) HOME MEDICATIONS: Home Medications Medication Instructions Recorded Donepezil HCl 10 mg PO DAILY 06/06/18 REVIEW OF SYSTEMS CONSTITUTIONAL: Absent: fever, chills, diaphoresis, generalized weakness, malaise, loss of appetite, weight change HEENT: Absent: rhinorrhea, nasal congestion, throat pain, throat swelling, difficulty swallowing, mouth swelling, ear pain, eye pain, visual changes CARDIOVASCULAR: Absent: chest pain, syncope, palpitations, irregular heart rate, lightheadedness , peripheral edema RESPIRATORY: Absent: cough, shortness of breath, dyspnea with exertion, orthopnea, wheezing, stridor, hemoptysis GASTROINTESTINAL: Absent: abdominal pain, abdominal distension, nausea, vomiting, diarrhea, constipation, melena, hematochezia GENITOURINARY: Absent: dysuria, frequency, urgency, hesitancy, hematuria, flank pain, genital pain MUSCULOSKELETAL: Absent: myalgia, arthralgia, joint swelling, back pain, neck pain SKIN: Absent: rash, itching, pallor HEMATOLOGIC/IMMUNOLOGIC: Absent: easy bleeding, easy bruising, lymphadenopathy, frequent infections ENDOCRINE: Absent: unexplained weight gain, unexplained weight loss, heat intolerance, cold intolerance NEUROLOGIC: Absent: headache, focal weakness or paresthesias, dizziness, unsteady gait, seizure, mental status changes, bladder or bowel incontinence PSYCHIATRIC: Absent: anxiety, depression, suicidal or homicidal ideation, hallucinations. PHYSICAL EXAMINATION Vital Signs Period Temp Pulse Resp BP Sys/Amanda Pulse Ox Last 24 Hr 98.0 F-100.5 F 58-69 20-22 132-146/68-83 GENERAL: AAOx2, no time , complains of pressure in his head HEAD: NC EYES: EOMI, Conjunctiva clear, sclera anicteric ENT: moist mucous membrane NECK: Supple, no JVD LUNGS: CTA B/L, no crackles no wheezing no accessory muscle use. HEART: RRR, NSR, normal s1, s2, murmur no M/R/G ABDOMEN: Soft, ND, NT, +BS 4 Q, no CVA Tenderness LOWER EXTREMITIES: no edema, +2DP pulse, NEUROLOGICAL: Awake but not maintaining attention, moves all ext. equally, sensory intact, gait deferred PSYCHIATRIC: Cooperative. SKIN: Warm, dry,left leg PV changes CBCD WBC 9.4 K/mm3 (4.0-10.0) 06/13/18 07:00 RBC 4.17 M/mm3 (4.00-5.60) 06/13/18 07:00 Hgb 13.4 GM/dL (11.7-16.9) 06/13/18 07:00 Hct 38.1 % (35.4-49) 06/13/18 07:00 MCV 91.4 fl (80-96) 06/13/18 07:00 MCHC 35.3 g/dl (32.0-35.9) 06/13/18 07:00 RDW 12.2 % (11.9-15.9) 06/13/18 07:00 Plt Count 168 K/MM3 (134-434) 06/13/18 07:00 MPV 9.0 fl (7.5-11.1) 06/13/18 07:00 CMP Sodium 135 mmol/L (136-145) L 06/13/18 07:00 Potassium 4.0 mmol/L (3.5-5.1) 06/13/18 07:00 Chloride 104 mmol/L (98-107) 06/13/18 07:00 Carbon Dioxide 24 mmol/L (21-32) 06/13/18 07:00 Anion Gap 6 MMOL/L (8-16) L 06/13/18 07:00 BUN 11 mg/dL (7-18) 06/13/18 07:00 Creatinine 0.6 mg/dL (0.55-1.3) 06/13/18 07:00 Creat Clearance w eGFR 131.70 (>60) 06/13/18 07:00 Random Glucose 120 mg/dL (74-106) H 06/13/18 07:00 Calcium 8.6 mg/dL (8.5-10.1) 06/13/18 07:00 Total Bilirubin 0.9 mg/dL (0.2-1) 06/07/18 08:42 AST 11 U/L (15-37) L 06/07/18 08:42 ALT 19 U/L (13-61) 06/07/18 08:42 Alkaline Phosphatase 80 U/L (45-117) 06/07/18 08:42 Total Protein 6.8 g/dl (6.4-8.2) 06/07/18 08:42 Albumin 3.6 g/dl (3.4-5.0) 06/07/18 08:42 CARDIAC ENZYMES Creatine Kinase 62 U/L (26-308) 06/07/18 08:42 Troponin I < 0.02 ng/ml (0.00-0.05) 06/07/18 08:42 Plan: 72 year old male with a significant past medical history of Dementia, who initially presented to the ED with complaints of head pain that began x2 days prior to admission. Patient reported experiencing frontal head pain he stated was a throbbing pain that waxes and wanes as well as associated chills, and vomiting, having x2 episodes. Reportedly, patient was given tylenol and ibuprofen for head pain with minimal relief. Reportedly experienced a fall one month ago and had reportedly been seen at [facility] and discharged. CT head here showed b/l subdural hematomas. Reviewed images and reports of scans from , 06/08, 06/09, 06/11, 06/12. MRI Brain from 06/07 also reviewed. The patient underwent surgical intervention with Dr. Gianfranco Kumar with improvement in blood product reduction. However, consulted for altered mental status and had extensive discussion with daughter in law at bedside and son on the phone explain continued blood products could take weeks to months to resorb and patient may have residual confusion and cognitive difficulty especially in context of his h/o dementia. He has been put on keppra for seizure prevention and does not demonstrate evidence of seizure like activity. Family understood this and asked about next steps. Explained short term rehab may be in his best interest for ambulation, gait, fall prevention. They are concerned about Peruvian language difficulty. They will speak further with caser. Advised strongly to avoid head trauma. Avoid antiplalet medications, tylenol for pain as needed. Follow up NSGY, Dr. Kumar rec'd. Repeat CT can be done in 4-6 weeks to assess resolution of blood products unless clinically indicated to be sooner. Can continue donepizil.
[2018-06-13] MEDS: LYTES/YERBA SANTA 240 ML BOTTLE MM SCH (09:35)
[2018-06-13] MEDS: PANTOPRAZOLE SODIUM 40 MG VIAL IVPUSH SCH (09:35)
[2018-06-13] MEDS: levETIRAcetam 500 MG/5 ML INJECTION VIAL IVPB SCH (09:35)
[2018-06-13 10:38] VITALS: BP 138/71; PULSE 65; TEMP 97.3
--- NOTE | 2018-06-13 10:41 | PN ---
Progress Note (short form) - Note Progress Note: NEUROSURGERY POD #6 On 8W Mild frontal H/A Son and daughter in law at bedside PE: Tmax 98.7, VSS Brother at bedside HEENT- NC/AT; Neck- supple; Cor- RRR; Lungs- CTA B; Abd- benign; Ext- no sign of DVT Uzbek speaking CN- PERRL, EOMF, face symmetric, tongue midline; Motor- at least 4+/5 B UE/LE without drift; Sensation- intact; DTR- 1+; toes upgoing B F/u Head CT- some residual fluids and pneumocephalus, unchanged from 06-11-18 scan, improved c/w pre-op Intra-op culture negative Acute on chronic L > R lateral fronto-parietal convexity SDH s/p B craniotomy for SDH Cont Keppra OOB/PT F/u head CT Adv diet Incentive spirometry All questions answered
--- NOTE | 2018-06-13 12:40 | PN ---
Teaching Attending Note Name of Resident: Cheyenne Encinas ATTENDING PHYSICIAN STATEMENT I saw and evaluated the patient. I reviewed the resident's note and discussed the case with the resident. I agree with the resident's findings and plan as documented with exceptions below. SUBJECTIVE: Patient seen and examined. Son and daughter in law in bedside. Patient reported some headache, otherwise no concerns. OBJECTIVE: Vital Signs Period Temp Pulse Resp BP Sys/Amanda Pulse Ox Last 24 Hr 97.3 F-100.5 F 58-69 20-22 132-146/68-83 95 Intake & Output 06/10/18 06/11/18 06/12/18 06/13/18 23:59 23:59 23:59 23:59 Intake Total 1420 3200 550 Output Total 895 Balance 525 3200 550 General: lying in bed in no acute distress HEENT: scalp sutures clean, no active erythema/swelling/discharge noted Neuro: Awake but not maintaining attention, facial symmetry, moves all extremities equally, further exam limited Extremities: no edema Home Medications Medication Instructions Recorded Donepezil HCl 10 mg PO DAILY 06/06/18 Acetaminophen [Tylenol .Regular 650 mg PO Q4H PRN tablet 06/13/18 Strength -] Levetiracetam [Keppra] 500 mg PO BID 15 Days #30 tablet 06/13/18 Active Medications Acetaminophen (Tylenol -) 650 mg PO Q4H PRN PRN Reason: HEADACHE Last Admin: 06/12/18 21:12 Dose: 650 mg Docusate Sodium (Colace -) 100 mg PO TID [facility] Last Admin: 06/13/18 06:59 Dose: 100 mg Donepezil HCl (Aricept -) 10 mg PO HS [facility] Last Admin: 06/12/18 21:12 Dose: 10 mg Dextrose/Sodium Chloride (Dextrose 5%-Normal Saline+20 Meq Kcl -) 20 meq in 1, 000 mls @ 80 mls/hr IV ASDIR [facility] Last Admin: 06/13/18 08:04 Dose: 80 mls/hr Levetiracetam (Keppra Injection -) 500 mg IVPB BID [facility] Last Admin: 06/13/18 09:35 Dose: 500 mg Ondansetron HCl (Zofran Injection) 4 mg IVPUSH Q6H PRN PRN Reason: NAUSEA Last Admin: 06/12/18 21:13 Dose: 4 mg Pantoprazole Sodium (Protonix Iv) 40 mg IVPUSH DAILY [facility] Last Admin: 06/13/18 09:35 Dose: 40 mg Saliva Substitute (Mouthkote Solution -) 1 applic MM DAILY [facility] Last Admin: 06/13/18 09:35 Dose: Not Given Laboratory Results - last 24 hr 06/13/18 06/13/18 07:00 07:00 WBC 9.4 RBC 4.17 Hgb 13.4 Hct 38.1 MCV 91.4 MCH 32.3 MCHC 35.3 RDW 12.2 Plt Count 168 MPV 9.0 Absolute Neuts (auto) 5.8 Neutrophils % 61.8 Lymphocytes % 26.1 Monocytes % 9.2 Eosinophils % 2.6 Basophils % 0.3 Nucleated RBC % 0 Sodium 135 L Potassium 4.0 Chloride 104 Carbon Dioxide 24 Anion Gap 6 L BUN 11 Creatinine 0.6 Creat Clearance w eGFR 131.70 Random Glucose 120 H Calcium 8.6 Phosphorus 4.0 Magnesium 2.1 ASSESSMENT AND PLAN: 72 yom with PMHx of dementia, admitted with headaches, found with bilateral SDH s/p craniotomy/evacuation 06/07 -Bilateral SDH s/p craniotomy/evacuation 06/07 -Headaches -Dementia Plan: Neurology/neurosurgery input noted. Continue keppra. Detailed discussion with son and daughter in law at bedside. Explained in detail about need for 24 hour assist, supervision, fall precautions and close outpatient follow up. They relay understanding and want to take patient home, assure to provide the same. Discussed with CM, home services arranged. D/c home today with outpatient neurosurgery/neurology/PCP follow up Plan discussed with nursing and family at bedside in detail, all questions answered.
[2018-06-13] MEDS: ACETAMINOPHEN 325 MG TABLET (FP) PO PRN (13:23)
--- NOTE | 2018-06-13 15:14 | DS ---
Physical Exam: SUBJECTIVE: Patient seen and examined; daughter in law at bedside; no new complaints; walking with PT to bathroom. Refusing REHAB> OBJECTIVE: Vital Signs Period Temp Pulse Resp BP Sys/Amanda Pulse Ox Last 24 Hr 97.3 F-100.5 F 58-69 20-22 132-146/68-83 95 PHYSICAL EXAM GENERAL: The patient is awake, alert, and fully oriented, in no acute distress. HEAD: forehead; surtures intact; no swelling erythema, EYES: PERRL, extraocular movements intact, sclera anicteric, conjunctiva clear. LUNGS: Breath sounds equal, clear to auscultation bilaterally, no wheezes, no crackles, no accessory muscle use. HEART: Regular rate and rhythm, S1, S2 without murmur, rub or gallop. ABDOMEN: Soft, nontender, nondistended, normoactive bowel sounds, no guarding, no rebound, no hepatosplenomegaly, no masses. EXTREMITIES: 2+ pulses, warm, well-perfused, no edema. NEUROLOGICAL: face symmetric, tongue midline; motor 4/5 B UE/LE without drift; sensation intact PSYCH: Normal mood, normal affect. SKIN: Warm, dry, normal turgor, no rashes or lesions noted. LABS Laboratory Results - last 24 hr 06/13/18 06/13/18 07:00 07:00 WBC 9.4 RBC 4.17 Hgb 13.4 Hct 38.1 MCV 91.4 MCH 32.3 MCHC 35.3 RDW 12.2 Plt Count 168 MPV 9.0 Absolute Neuts (auto) 5.8 Neutrophils % 61.8 Lymphocytes % 26.1 Monocytes % 9.2 Eosinophils % 2.6 Basophils % 0.3 Nucleated RBC % 0 Sodium 135 L Potassium 4.0 Chloride 104 Carbon Dioxide 24 Anion Gap 6 L BUN 11 Creatinine 0.6 Creat Clearance w eGFR 131.70 Random Glucose 120 H Calcium 8.6 Phosphorus 4.0 Magnesium 2.1 HOSPITAL COURSE: Date of Admission:06/07/18 Date of Discharge: 06/13/18 This is a 72 year old male with dementia; who presents with headache and found to have a 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 Cultures negative. Head CT done 06-12-18with residual fluids pneumocephalus, unchanged from 06-11-18 scan, improved. NO complications. Patient and family refused rehab. They were explained in detail to cautiously monitor patient and avoid any trauma. NO NSAIS, antiplatelets. Follow up with DR Muriel KUMAR in 4-5 days for suture removal. HE will continue keppra fro seizure ppl. Minutes to complete discharge: 30 Discharge Summary Reason For Visit: SUBDURAL HEMATOMA Current Active Problems Headache (Acute) Subdural hematoma (Acute) Vomiting (Acute) Condition: Fair - Instructions Diet, Activity, Other Instructions: Mr. Carpio, you were treated in the hospital for a brain bleed. We advised term rehab may be in his best interest for ambulation, gait, fall prevention. You and your family decided to go home. Please be extremely careful at home when ambulating. Use your walker for assistance. DO NOT use any anti platelet medicaitons, aspirin, NSAIDs likey aleve or ibprofen as these can cause bleeding. You can use Tylenol for pain control. Please follow up with DR. KUMAR at his office for suture removal in 4 days. In the meantime keep area clean and dry. Repeat CT can be done in 4-6 weeks to assess resolution of blood products. Maintain a well balanced diet and adequate water intake. New medication: Keppra 500mg by mouth daily until otherwise directed by neurologist. Continue: Donepezil 10mg daily AVOID MOTRIN, IBUPROFEN, NSAIDS OR ANY OTHER BLOOD THINNERS UNLESS CLEARED BY YOUR NEUROLOGIST OR NEUROSURGEON. You will need 24 hour assist and supervision for all your home activities. IF you experience any worsening of symptoms including altered mental status, chest pain, shortness of breath, fevers, redness/swelling/pain around wound area or any new concerns, please call 911 or return to the emergency room. Referrals: Oscar Kumar MD [Staff Physician] - 1 Week (suture removal in 4-5 days) Hemant Torres MD [Staff Physician] - Jessica Burnett MD [Primary Care Provider] - Disposition: VNS/HOME HEALTH CARE - Home Medications Comprehensive Discharge Medication List: Ambulatory Orders Donepezil HCl 10 mg PO DAILY 06/06/18 Acetaminophen [Tylenol .Regular Strength -] 650 mg PO Q4H PRN tablet 06/13/18 Levetiracetam [Keppra] 500 mg PO BID 15 Days #30 tablet 06/13/18 This patient is new to me today: Yes Date on this admission: 06/13/18 Emergency Visit: Yes ED Registration Date: 06/07/18 Care time: The patient presented to the Emergency Department on the above date and was hospitalized for further evaluation of their emergent condition. Critical Care patient: No - Discharge Referral Referred to [facility] No
== END 2018-06-13 16:39 | disposition home health service (06) | DRG 20 ==
LOC: JER 19:28 → JERBED 06-07 02:30 → JICU 06-07 05:20 → J8W 06-11 00:24
PROVIDERS: ADMIT Internal Medicine; ATTEND Hospitalist
PROC: 009400Z Drainage of Intracranial Subdural Space with Drainage Device, Open Approach (ICD-10-PCS; 2018-06-07)
PROC: 00C40ZZ Extirpation of Matter from Intracranial Subdural Space, Open Approach (ICD-10-PCS; principal; 2018-06-07 10:30)
DX: S06.5X0A Traumatic subdural hemorrhage without loss of consciousness, initial encounter (principal); G93.89 Other specified disorders of brain; F03.90 Unspecified dementia, unspecified severity, without behavioral disturbance, psychotic disturbance, mood disturbance, and anxiety; I73.9 Peripheral vascular disease, unspecified; Z86.718 Personal history of other venous thrombosis and embolism; W03.XXXA Other fall on same level due to collision with another person, initial encounter; Y93.89 Activity, other specified; Y92.89 Other specified places as the place of occurrence of the external cause; Y99.8 Other external cause status
CPT/HCPCS: 36415; 70450-TC; 70551-TC; 71045-TC-FY; 80048; 80053; 81003; 82550; 82607; 83735; 83880; 84100; 84443; 84484; 85025; 85027; 85610; 85651; 85730; 86140; 86850; 86900; 86901; 86922; 87070; 87075; 87086; 87205; 87804; 88108; 88305-TC; 93005; 93010; 93970-TC; 94760; 97116-GP; 97162-GP; 99285-25; J0131; J7030

== ENCOUNTER 2019-04-29 06:06 | Day surgery (SDC) | payer OTHER ==
[2019-04-26 15:13] VITALS: BMI 29.7
[2019-04-29] MEDS ORDERED: PROPOFOL 20 ML ONE ×2 (08:04)
--- NOTE | 2019-04-29 09:48 | OP ---
Operative Note - Note: Operative Date: 04/29/19 Pre-Operative Diagnosis: Left renal stone Operation: Left ESWL Findings: 7 mm mid pole Left renal stone Post-Operative Diagnosis: Same as Pre-op Surgeon: Elvis Silver Anesthesia: Fractional Estimated Blood Loss (mls): 0 Drains, Volume Out (mls): 0 Operative Report Dictated: Yes
[2019-04-29 10:16] VITALS: BP 127/74; PULSE 57; TEMP 97.3
[2019-04-29] MEDS ORDERED: ONDANSETRON 4 MG/2 ML VIAL IVPUSH PRN (11:29)
[2019-04-29] MEDS ORDERED: oxyCODONE HCL 5 MG TABLET PO PRN (11:29)
[2019-04-29] MEDS ORDERED: LACTATED RINGERS SOLUTION 1,000 ML IV SCH (11:30)
--- NOTE | 2019-04-30 13:44 | OP ---
DATE OF OPERATION: 04/29/2019 PREOPERATIVE DIAGNOSIS: Left renal stone. POSTOPERATIVE DIAGNOSIS: Left renal stone. PROCEDURE: Left extracorporeal shock-wave lithotripsy. ATTENDING: Elvis Mak MD ANESTHESIA: Fractional. DESCRIPTION OF PROCEDURE: Patient was brought in the operating room. Placed in supine position on the operating room table. Ultrasonography and fluoroscopy were performed. A 7-mm left mid pole stone was identified. Anesthesia and perioperative antibiotics were then administered. Shock-wave lithotripsy was performed. No complications were noted. The patient tolerated the procedure very well. DISPOSITION: To recovery room. Rhina [id number]
== END 2019-04-29 11:03 | disposition home or self-care (01) ==
LOC: JASU-SURG 06:06
PROVIDERS: ATTEND Urology
PROC: 0TF4XZZ Fragmentation in Left Kidney Pelvis, External Approach (ICD-10-PCS; principal; 2019-04-29 08:00)
DX: N20.0 Calculus of kidney (principal)

== ENCOUNTER 2021-08-02 17:52 | Emergency (ER) | payer OTHER ==
[2021-08-02 18:35] VITALS: BP 107/75; PULSE 81; TEMP 98.4; BMI 28.9
[2021-08-02] MEDS ORDERED: SODIUM CHLORIDE 500 ML IV STA (21:27)
[2021-08-02] MEDS ORDERED: PANTOPRAZOLE SODIUM 40 MG VIAL IVPUSH ONE (21:44)
[2021-08-02] MEDS ORDERED: PANTOPRAZOLE SODIUM 40 MG VIAL ONE (22:24)
[2021-08-02 22:26] LABS: BASO % 0.3 % (0-2.0); EOS % 2.8 % (0-4.5); HEMATOCRIT 40.5 % (35.4-49); HEMOGLOBIN 13.3 GM/dL (11.7-16.9); LYMPH % 42.6 % (8-40); MCH 30.6 pg (25.7-33.7); MCHC 32.8 g/dl (32.0-35.9); MEAN CELL VOLUME 93.3 fl (80-96); MEAN PLT VOLUME 9.3 fl (7.5-11.1); MONO % 8.9 % (3.8-10.2); NEUT % 45.4 % (42.8-82.8); PLATELET COUNT 148 10^3/uL (134-434); RBC 4.34 M/mm3 (4.00-5.60); RDW 12.9 % (11.9-15.9); RETICULOCYTES 1.03 % (0.5-1.5); WHITE BLOOD COUNT 5.8 K/mm3 (4.0-10.0)
[2021-08-02 22:49] LABS: ACTIVATED PTT 41.4 SECONDS (25.2-36.5); INR 1.06 (0.83-1.09); PROTHROMBIN TIME (PATIENT) 12.2 SEC (9.7-13.0)
[2021-08-02 22:51] LABS: CALCIUM 8.4 mg/dL (8.5-10.1)
[2021-08-02 22:53] LABS: ALBUMIN 3.6 g/dl (3.4-5.0); BLOOD UREA NITROGEN 27.5 mg/dL (7-18)
[2021-08-02 22:55] LABS: CREATININE 0.9 mg/dL (0.55-1.3)
[2021-08-02 22:56] LABS: BILIRUBIN,TOTAL 0.6 mg/dL (0.2-1); TOT PROT 6.8 g/dl (6.4-8.2)
[2021-08-03 01:45] LABS: URINE APPEARANCE CLEAR; URINE BILIRUBIN NEGATIVE (NEGATIVE); URINE COLOR YELLOW; URINE GLUCOSE (UA) NEGATIVE (NEGATIVE); URINE KETONE NEGATIVE (NEGATIVE); URINE LEUK ESTERASE NEGATIVE (NEGATIVE); URINE NITRITE NEGATIVE (NEGATIVE); URINE PROTEIN NEGATIVE (NEGATIVE); URINE UROBILINOGEN 0.2 mg/dL (0.2-1.0)
== END 2021-08-03 03:20 | disposition home or self-care (01) ==
LOC: JER 17:52
PROC: 3E033GC Introduction of Other Therapeutic Substance into Peripheral Vein, Percutaneous Approach (ICD-10-PCS; principal; 2021-08-02)
PROC: 3E0337Z Introduction of Electrolytic and Water Balance Substance into Peripheral Vein, Percutaneous Approach (ICD-10-PCS; 2021-08-02)
DX: R19.7 Diarrhea, unspecified (principal); R10.9 Unspecified abdominal pain
CPT/HCPCS: 36415; 74176-TC; 80053; 81003; 82272; 85025; 85045; 85610; 85730; 86850; 86900; 86901; 93005; 93010; 99285-25